=== PATIENT | female | born 1995 | race Caucasian/White ===

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

== ENCOUNTER 2017-01-10 22:04 | Emergency (ER) | payer BC ==
[~2017-01-10] VITALS: Ht 160 cm; Wt 80.0 kg
[2017-01-10 22:47] VITALS: BP 125/75; PULSE 90; RESP 18; TEMP 98; O2SAT 99
== END 2017-01-11 01:00 | disposition left against medical advice (07) ==
LOC: PHED 22:04
DX: M54.9 Dorsalgia, unspecified (principal)
CPT/HCPCS: 99281

== ENCOUNTER → 2017-01-17 | Outpatient (CLI) | payer BC | LOC: CDED 14:45 | PROVIDERS: ATTEND Obstetrics & Gynecology | DX: O24.011 Pre-existing type 1 diabetes mellitus, in pregnancy, first trimester (principal) | CPT/HCPCS: 97802 ==

== ENCOUNTER → 2017-02-02 | Outpatient (CLI) | payer BC | LOC: HPND 10:53 | PROVIDERS: ATTEND Obstetrics & Gynecology | DX: Z36.82 Encounter for antenatal screening for nuchal translucency (principal) | CPT/HCPCS: 76801 ==

== ENCOUNTER 2017-03-02 20:13 | Emergency (ER) | payer BC ==
[~2017-03-02] VITALS: Ht 160 cm; Wt 78.4 kg
[2017-03-02 20:35] VITALS: BP 128/64; PULSE 104; RESP 18; TEMP 97.9; O2SAT 98
[2017-03-02 20:51] VITALS: BP 128/64; PULSE 104; RESP 16; TEMP 97.9; O2SAT 98
[2017-03-02] MEDS ORDERED: HUMALOG SQ (20:51)
[2017-03-02] MEDS ORDERED: PREN1PAK9 (20:51)
[2017-03-02] MEDS ORDERED: SODIUM CHLOR 0.9% 1000 ML INJ 1,000 ML IV SCH (20:58)
[2017-03-02] MEDS ORDERED: SODIUM CHLORIDE 0.9% FLUSH 10 ML FLUSH IV FLUSH PRN (21:00)
[2017-03-02] MEDS ORDERED: SODIUM CHLOR 0.9% 1000 ML INJ 1,000 ML IV ONE (21:00)
[2017-03-02] MEDS ORDERED: ONDANSETRON HCL 4 MG/2 ML VIAL IV PUSH ONE (21:00)
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
[2017-03-02 21:34] LABS: AUTOMATED NEUTROPHIL # 8.5 TH/MM3 (1.8-7.7); BASOPHIL % 0.4 % (0.0-2.0); EOSINOPHIL % 0.4 % (0.0-4.0); HEMATOCRIT 38.2 % (35.0-46.0); HEMOGLOBIN 13.1 GM/DL (11.6-15.3); LYMPH % 19.1 % (9.0-44.0); LYMPHOCYTE # 2.1 TH/MM3 (1.0-4.8); MEAN CELL VOLUME 91.9 FL (80.0-100.0); MEAN CORPUSCULAR HEMOGLOBIN 31.6 PG (27.0-34.0); MEAN CORPUSCULAR HGB CONC 34.4 % (32.0-36.0); MEAN PLATELET VOLUME 8.9 FL (7.0-11.0); MONO % 5.3 % (0.0-8.0); MONOCYTE # 0.6 TH/MM3 (0-0.9); NEUT % 74.8 % (16.0-70.0); PLATELET COUNT 255 TH/MM3 (150-450); RED BLOOD COUNT 4.16 MIL/MM3 (4.00-5.30); RED CELL DISTRIBUTION WIDTH 11.8 % (11.6-17.2); WHITE BLOOD COUNT 11.2 TH/MM3 (4.0-11.0)
[2017-03-02 21:35] LABS: BILIRUBIN, URINE NEG (NEG); BLOOD, URINE NEG (NEG); GLUCOSE,URINE 1000 OR GREATER mg/dL (NEG); KETONE, URINE NEG (NEG); NITRITE,URINE NEG (NEG); URINE LEUKOCYTE ESTERASE NEG (NEG)
[2017-03-02 21:40] LABS: URINE COLOR YELLOW (YELLW/STRAW)
[2017-03-02 21:41] LABS: BACTERIA, URINE FEW /hpf; SQUAMOUS EPITHELIAL CELL URINE > 8 /hpf (0-5); WBC, URINE 0-2 /hpf (0-5)
[2017-03-02 21:52] LABS: CHLORIDE 105 MEQ/L (98-107); SODIUM (NA) 137 MEQ/L (136-145)
[2017-03-02 21:55] LABS: CALCIUM 8.9 MG/DL (8.5-10.1)
[2017-03-02 21:56] LABS: ALBUMIN 3.5 GM/DL (3.4-5.0); BICARBONATE 23.7 MEQ/L (21.0-32.0); BLOOD UREA NITROGEN 5 MG/DL (7-18); GLUCOSE,RANDOM 213 MG/DL (74-106)
[2017-03-02 21:59] LABS: ALT (GPT) 16 U/L (9-42); AST (GOT) 11 U/L (16-38); CREATININE 0.49 MG/DL (0.50-1.00); GLOMERULAR FILTRATION RATE 163 ML/MIN (>89)
[2017-03-02 22:01] LABS: TOTAL BILIRUBIN ADULT 0.3 MG/DL (0.2-1.0); TOTAL PROTEIN 7.4 GM/DL (6.4-8.2)
[2017-03-02 22:02] LABS: ALKALINE PHOSPHATASE 44 U/L (45-117)
[2017-03-02 22:58] VITALS: BP 119/74; PULSE 87; RESP 16; O2SAT 99
== END 2017-03-02 23:15 | disposition home or self-care (01) ==
LOC: PHED 20:13
DX: O24.912 Unspecified diabetes mellitus in pregnancy, second trimester (principal); E10.65 Type 1 diabetes mellitus with hyperglycemia; O21.9 Vomiting of pregnancy, unspecified; Z3A.17 17 weeks gestation of pregnancy; Z79.4 Long term (current) use of insulin; Z79.899 Other long term (current) drug therapy; Z34.92 Encounter for supervision of normal pregnancy, unspecified, second trimester
CPT/HCPCS: 80053; 81001; 84702; 85025; 96361; 96374; 99284; J2405; J7030

== ENCOUNTER → 2017-03-09 | Outpatient (CLI) | payer BC ==
[~2017-03-09] MED LIST changes: +HUMALOG SQ; +PREN1PAK9
== END ==
LOC: HPND 09:47
PROVIDERS: ATTEND Obstetrics & Gynecology
DX: O24.012 Pre-existing type 1 diabetes mellitus, in pregnancy, second trimester (principal); Z79.4 Long term (current) use of insulin
CPT/HCPCS: 76811

== ENCOUNTER 2017-03-25 14:08 | Emergency (ER) | payer BC ==
--- NOTE | 2017-03-25 16:17 | PD ---
HPI Chief Complaint back pain, elevated glucose Date Seen: Mar 25, 2017 Time Seen: 16:12 Travel History International Travel<30 Days: No Contact w/Intl Traveler<30Days: No Known Affected Area: No History of Present Illness HPI 21y/o G1 @ 20.5wks. PNC at [facility]. Presents for back pain, bilateral, aching. No dysuria/fevers/chills. +FM, no VB/LOF/ctx. is c/b Type 1 DM ( insulin pump) with multiple episodes of DKA throughout lifetime. Pt states sugars have been in the 200-300 range. Is followed by MFM/endocrinology. States her sugars are the best they have every been in her life at these levels. Weeks Gestation: 20 Para: 0 : 1 History Past Medical History Narrative Medical type 1 DM Obstetric History Obstetric History 1. current Past Surgical History Narrative Surgical cholecystectomy thoracentesis Family History Family History: Negative Social History Alcohol Use: Yes Tobacco Use: Yes Substance Abuse: Yes Allergies-Medications (Allergen,Severity, Reaction): Coded Allergies: No Known Allergies (Verified , 09/27/16) Home Meds Reported Medications Mv & Min W/Fe Prot Ross ( + Complete Multi 18-0.8 & 290 mg) 18 Mg Iron-800 Mcg-290 Mg-225 Mg Vega 03/02/17 Insulin Lispro (Human) Inj (Humalog Inj) 1,000 Unit/10 Ml Vial, 1-9 UNITS SQ ACHS for Blood Sugar Management, #1 VIAL 0 Refills Max dose at bedtime:( )units; sugars< 70,(0)units; sugars 150-199,(1)unit; sugars 200-249,(3)units; sugars 250-299,(5)units; sugars 300-349,(7)units; sugars more than 349,(9)units. 03/02/17 Insulin Human Regular Inj (Novolin R Inj) 1,000 Unit/10 Ml Vial, 0 SQ DIRECTED for Blood Sugar Management, #10 ML 0 Refills Sliding Scale As Directed. 06/27/16 Review of Systems Except as stated in HPI: all other systems reviewed are Neg Physical Exam Narrative General: well developed, well nourished, no acute distress HEENT: normocephalic atraumatic, extraocular movements intact, neck supple Abdomen: soft, nontender, nondistended Back: no CVA tenderness Extremities: full range of motion Skin: normal coloration, no rashes, no suspicious skin lesions noted Neurologic: cranial nerves 2-12 grossly intact, normal muscle tone, normal gait Psychiatric: normal mood and affect, appropriate FHTs: 160s Edie: quiet FSBS: 244 Data Data Vital Signs Reviewed: Yes Orders Orders Vital Signs (Adult) .ON ADMISSION (03/25/17 16:11) ^ Labor Status (03/25/17 16:11) Heart (03/25/17 16:11) Urinalysis - C+S If Indicated (03/25/17 16:11) Bedside Glucose MALCOM.CSUGAR (03/25/17 16:11) MDM Plan 21y/o G1 @ 20.5wks with back pain and poorly controlled DM. -- UA neg for infection -- back pain likely MSK -- pt sees chiropractor BIW -- FSBS 244; pt to ED for further evaluation/management Diagnosis Diagnosis: Primary Impression: 20 weeks gestation of Additional Impressions: Back pain Diabetes mellitus affecting in second trimester Disposition: 01 DISCHARGE HOME Condition: Stable Patient Instructions: General Instructions Departure Forms: Tests/Procedures Rashaad Stevens MD Mar 25, 2017 16:17
== END 2017-03-25 16:20 | disposition home or self-care (01) ==
LOC: HOBED 14:08
DX: O26.892 Other specified pregnancy related conditions, second trimester (principal); M54.9 Dorsalgia, unspecified; O24.012 Pre-existing type 1 diabetes mellitus, in pregnancy, second trimester; E10.9 Type 1 diabetes mellitus without complications; Z3A.20 20 weeks gestation of pregnancy; Z79.4 Long term (current) use of insulin; Z90.49 Acquired absence of other specified parts of digestive tract; Z72.0 Tobacco use
CPT/HCPCS: 99283

== ENCOUNTER 2017-03-25 16:29 | Emergency (ER) | payer BC ==
[2017-03-25 16:31] VITALS: BP 121/68; PULSE 90; RESP 14; TEMP 98.2; O2SAT 100
== END 2017-03-25 16:47 | disposition left against medical advice (07) ==
LOC: NED 16:29
DX: E11.9 Type 2 diabetes mellitus without complications (principal)
CPT/HCPCS: 99281

== ENCOUNTER → 2017-04-06 | Outpatient (CLI) | payer BC ==
[~2017-04-06] MED LIST changes: +AUGM875T3 PO; +BUTA1CAP PO
== END ==
LOC: HPND 09:52
PROVIDERS: ATTEND Obstetrics & Gynecology
DX: O24.012 Pre-existing type 1 diabetes mellitus, in pregnancy, second trimester (principal)
CPT/HCPCS: 76816; 76825; 76827; 93325

== ENCOUNTER 2017-04-11 08:06 | Emergency (ER) | payer BC ==
[~2017-04-11] VITALS: Ht 160 cm; Wt 80.0 kg
[~2017-04-11 08:06] MED LIST changes: -AUGM875T3 PO; -BUTA1CAP PO
[2017-04-11 08:08] VITALS: BP 135/66; PULSE 103; RESP 17; TEMP 98; O2SAT 97
[2017-04-11 08:37] VITALS: BP 118/70; PULSE 95; RESP 18; O2SAT 99
[2017-04-11] MEDS ORDERED: KETOROLAC TROMETHAMINE 60 MG/2 ML (IM) VIAL IM ONE (08:45)
[2017-04-11] MEDS ORDERED: PROMETHAZINE INJ 25 MG/ML VIAL IM ONE (08:45)
[2017-04-11] MEDS ORDERED: AUGM875T3 PO (08:45)
[2017-04-11] MEDS ORDERED: BUTA1CAP PO (08:45)
--- NOTE | 2017-04-11 08:46 | PD ---
HPI Chief Complaint: Headache Time Seen by Provider: 08:34 Travel History International Travel<30 days: No Contact w/Intl Traveler<30days: No Traveled to known affect area: No History of Present Illness HPI Patient comes in complaining of a frontal headache, rates it at about a 7 out of 10, onset was about a day ago, and it has not been improving... No alleviating or aggravating factors. Patient denies any associated factors such as fever neck pain, nausea, vomiting, diarrhea, chest pain, abdominal pain, back pain. No allergies to any medications Significant past medical history for type 1 diabetes Only significant surgery is a cholecystectomy . PFSH Past Medical History Autoimmune Disease: No Anxiety: No Depression: No Cardiovascular Problems: No Diabetes: Yes Patient Takes Glucophage: No Diminished Hearing: No Gastrointestinal Disorders: No Genitourinary: No Heparin Induced Thrombocytopen: No Immune Disorder: No Musculoskeletal: No Neurologic: No Psychiatric: No Respiratory: No Immunizations Current: Yes Sickle Cell Disease: No Tetanus Vaccination: > 5 Years Influenza Vaccination: No PNEUMOCCOCAL Vaccine (Year): 2 ?: LMP: 10/22/16 Past Surgical History Body Medical Devices: VIBE IMPLANTED INSULIN PUMP (2016) Cholecystectomy: Yes Insulin Pump: Yes (not currently on) Other Surgery: No Social History Alcohol Use: No Tobacco Use: No Substance Use: No Allergies-Medications (Allergen,Severity, Reaction): Coded Allergies: No Known Allergies (Verified Adverse Reaction, Unknown, 04/11/17) Reported Meds & Prescriptions Reported Meds & Active Scripts Active Reported + Complete Multi 18-0.8 & 290 mg ( Mv & Min W/Fe Prot Ross) 18 Mg Iron-800 Mcg-290 Mg-225 Mg Vega Humalog Inj (Insulin Human Lispro) 1,000 Unit/10 Ml Vial 1-9 Units SQ ACHS Max dose at bedtime:( )units; sugars< 70,(0)units; sugars 150-199,(1)unit; sugars 200-249,(3)units; sugars 250-299,(5)units; sugars 300-349,(7)units; sugars more than 349,(9)units. Novolin R Inj (Insulin Human Regular) 1,000 Unit/10 Ml Vial 0 SQ DIRECTED Sliding Scale As Directed. Review of Systems Except as stated in HPI: all other systems reviewed are Neg General / Constitutional: No: Fever Eyes: No: Visual changes HENT: Positive: Headaches Cardiovascular: No: Chest Pain or Discomfort Respiratory: No: Shortness of Breath Gastrointestinal: No: Abdominal Pain Genitourinary: No: Dysuria Musculoskeletal: No: Pain Skin: No Rash Neurologic: No: Weakness Psychiatric: No: Depression Endocrine: No: Polydipsia Hematologic/Lymphatic: No: Easy Bruising Physical Exam Narrative GENERAL: SKIN: Warm and dry. HEAD: Atraumatic. Normocephalic. EYES: Pupils equal and round. No scleral icterus. No injection or drainage. ENT: No nasal bleeding or discharge. Mucous membranes pink and moist. NECK: Trachea midline. No JVD. CARDIOVASCULAR: Regular rate and rhythm. RESPIRATORY: No accessory muscle use. Clear to auscultation. Breath sounds equal bilaterally. GASTROINTESTINAL: Abdomen soft, non-tender, nondistended. MUSCULOSKELETAL: Extremities without clubbing, cyanosis, or edema. No obvious deformities. NEUROLOGICAL: Awake and alert. No obvious cranial nerve deficits. Motor grossly within normal limits. Five out of 5 muscle strength in the arms and legs. Normal speech. PSYCHIATRIC: Appropriate mood and affect; insight and judgment normal. Data Data Last Documented VS Vital Signs Date Time Temp Pulse Resp B/P (MAP) Pulse Ox O2 Delivery O2 Flow Rate FiO2 04/11/17 08:37 95 18 118/70 (86) 99 Room Air 04/11/17 08:08 98.0 Orders Orders Ketorolac Inj (Toradol Inj) (04/11/17 08:45) Promethazine Inj (Phenergan Inj) (04/11/17 08:45) MDM Medical Decision Making Medical Screen Exam Complete: Yes Emergency Medical Condition: Yes Medical Record Reviewed: Yes Differential Diagnosis Tension headache versus sinus headache versus migraine Narrative Course Clinically patient shows evidence of a sinusitis Diagnosis Primary Impression: sinusitis Patient Instructions: General Instructions Scripts Prmsinvxqu-Fzbpdzrjvxyvt-Ummwdzkk (Fioricet) 50-300-40 Mg Cap 1-2 CAP PO Q6H Y for HEADACHE, #14 CAP 0 Refills Prov: Paco Sparrow MD 04/11/17 Amoxicillin-Clavulanate (Augmentin) 875-125 Mg Tab 1 TAB PO BID for Infection for 7 Days, #14 TAB 0 Refills Prov: Paco Sparrow MD 04/11/17 Disposition: 01 DISCHARGE HOME Condition: Stable Paco Sparrow MD Apr 11, 2017 08:46
[2017-04-11] MEDS ORDERED: AMOXICILLIN/CLAVULANATE K 875 MG TAB PO ONE (10:45)
== END 2017-04-11 12:01 | disposition home or self-care (01) ==
LOC: NEPC 08:06
DX: J32.9 Chronic sinusitis, unspecified (principal); E10.9 Type 1 diabetes mellitus without complications; Z79.4 Long term (current) use of insulin
CPT/HCPCS: 96372; 99283; J1885; J2550

== ENCOUNTER → 2017-05-04 | Outpatient (CLI) | payer BC ==
[~2017-05-04] MED LIST changes: +AUGM875T3 PO; +BUTA1CAP PO
== END ==
LOC: HPND 10:09
PROVIDERS: ATTEND Obstetrics & Gynecology
DX: O24.012 Pre-existing type 1 diabetes mellitus, in pregnancy, second trimester (principal)
CPT/HCPCS: 76816

== ENCOUNTER → 2017-06-01 | Outpatient (CLI) | payer BC | LOC: HPND 09:18 | PROVIDERS: ATTEND Obstetrics & Gynecology | DX: O24.013 Pre-existing type 1 diabetes mellitus, in pregnancy, third trimester (principal) | CPT/HCPCS: 76816 ==

== ENCOUNTER → 2017-06-12 | Emergency (ER) | payer BC ==
[~2017-06-12] MED LIST changes: +LACTATED RINGER'S 1000 ML INJ 500 ML IV ONE; +NIFEdipine 10 MG CAP ONE; +NIFEdipine 20 MG CAP PO ONE
--- NOTE | 2017-06-12 17:03 | PD ---
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 She denies bleeding, leakage of fluid and is uncertain whether this is contraction activity. She reports good movement. Last Menstrual Period: Jun 12, 2017 History Past Medical History Narrative Medical Type I diabetic with an insulin pump, blood sugar at 1:30 was 154 Obstetric History Obstetric History Dr. Wheeler patient Primigravida Type I diabetic Past Surgical History Narrative Surgical None Surgical History: No Previous Surgery Family History Family History: Negative Social History Alcohol Use: No Tobacco Use: No Substance Abuse: No Allergies-Medications (Allergen,Severity, Reaction): Coded Allergies: No Known Allergies (Verified Allergy, Unknown, 06/12/17) Home Meds Active Scripts Hfparduqgq-Uclkvbpxcmwug-Typxjvec (Fioricet) 50-300-40 Mg Cap, 1-2 CAP PO Q6H Y for HEADACHE, #14 CAP 0 Refills Prov:Paco Sparrow MD 04/11/17 Amoxicillin-Clavulanate (Augmentin) 875-125 Mg Tab, 1 TAB PO BID for Infection for 7 Days, #14 TAB 0 Refills Prov:Paco Sparrow MD 04/11/17 Reported Medications Mv & Min W/Fe Prot Ross ( + Complete Multi 18-0.8 & 290 mg) 18 Mg Iron-800 Mcg-290 Mg-225 Mg Vega 03/02/17 Insulin Lispro (Human) Inj (Humalog Inj) 1,000 Unit/10 Ml Vial, 1-9 UNITS SQ ACHS for Blood Sugar Management, #1 VIAL 0 Refills Max dose at bedtime:( )units; sugars< 70,(0)units; sugars 150-199,(1)unit; sugars 200-249,(3)units; sugars 250-299,(5)units; sugars 300-349,(7)units; sugars more than 349,(9)units. 03/02/17 Insulin Human Regular Inj (Novolin R Inj) 1,000 Unit/10 Ml Vial, 0 SQ DIRECTED for Blood Sugar Management, #10 ML 0 Refills Sliding Scale As Directed. 06/27/16 Review of Systems Except as stated in HPI: all other systems reviewed are Neg Physical Exam Narrative GENERAL: Well-nourished, well-developed patient. SKIN: Warm and dry. HEAD: Normocephalic and atraumatic. EYES: No scleral icterus. No injection or drainage. ENT: No nasal drainage noted. Mucous membranes pink. Airway patent. NECK: Supple, trachea midline. No JVD. CARDIOVASCULAR: Regular rate and rhythm without murmurs, gallops, or rubs. RESPIRATORY: Breath sounds equal bilaterally. No accessory muscle use. ABDOMEN/GI: Abdomen soft, non-tender, bowel sounds present, no rebound, no guarding Gravid to [-] weeks size Fundal Height: [-] GENITOURINARY: External Genitalia: intact and normal in appearance BUS glands: [-] Cervix: [-] Dilatation: [Fingertip-] Effacement: [50-] Station: [-2-] Presentation: [-] Membranes: [intact] Uterine Contractions: [Mild Q3-] FHT's: Category: [-] Baseline: [-] Reactive: [Yes-] Variability: [-] Decels: [-] EXTREMITIES: No cyanosis or edema. BACK: Nontender without obvious deformity. No CVA tenderness. NEUROLOGICAL: Awake and alert. Motor and sensory grossly within normal limits. Five out of 5 muscle strength in all muscle groups. Normal speech. MDM Medical Record Reviewed: Yes Narrative Course / MDM Assessment: 32+ week primigravida with contractions, type 1 diabetes Plan: IV hydration, fibronectin, urinalysis Addendum: Urinalysis was unremarkable, fibronectin negative The patient reports diminished pain. Cervix is unchanged Plan: Discharge home with labor precautions. Diagnosis Diagnosis: Primary Impression: 32 weeks gestation of Additional Impression: Irregular uterine contractions Disposition: 01 DISCHARGE HOME Condition: Good Nick Valentin MD Jun 12, 2017 17:03
[2017-06-12 17:13] LABS: BILIRUBIN, URINE NEG (NEG); BLOOD, URINE NEG (NEG); GLUCOSE,URINE 1000 mg/dL (NEG); KETONE, URINE 150 mg/dL (NEG); MUCUS URINE FEW /lpf (OCC); NITRITE,URINE NEG (NEG); SQUAMOUS EPITHELIAL CELL URINE 1 /hpf (0-5); URINE COLOR YELLOW (YELLW/STRAW); URINE LEUKOCYTE ESTERASE NEG (NEG)
== END | disposition home or self-care (01) ==
LOC: HOBED 16:21
DX: O62.2 Other uterine inertia (principal); Z3A.32 32 weeks gestation of pregnancy
CPT/HCPCS: 59025; 81001; 82731; 96360; 96361; 99284; J7120

== ENCOUNTER 2017-06-13 11:23 | Emergency (ER) | payer BC ==
[~2017-06-13 11:23] MED LIST changes: -LACTATED RINGER'S 1000 ML INJ 500 ML IV ONE; -NIFEdipine 10 MG CAP ONE; -NIFEdipine 20 MG CAP PO ONE
[2017-06-13 12:25] VITALS: PULSE 104
[2017-06-13 12:27] VITALS: BP 114/68; PULSE 97
--- NOTE | 2017-06-13 12:50 | PD ---
HPI Chief Complaint CTX, abdominal pain Date Seen: Jun 13, 2017 Time Seen: 12:29 Travel History International Travel<30 Days: No Contact w/Intl Traveler<30Days: No History of Present Illness HPI 24 year old primigravida 32 and 3/7 weeks gestation who comes today noting contractions every 2 min since this morning. She denies vaginal bleeding or leakage of fluid. She feels baby moving regularly. She denies GOULD/N/V/D/fever/ sick contacts/SOB/calf pain/dizziness/seeing spots. OB care is with Dr. Wheeler. DM 1 on insulin pump since prior to , blood sugars well controlled per patient. On aspirin 81mg daily. No Hx HTN She of note was seen in ED yesterday with CTX q 2min, was given 1L fluid bolus and Procardia 20mg PO x 1. History Past Medical History Narrative Medical type 1 DM Obstetric History Obstetric History G1 current Past Surgical History Surgical History: No Previous Surgery Family History Family History: Negative Social History Alcohol Use: No Tobacco Use: No Substance Abuse: No Allergies-Medications (Allergen,Severity, Reaction): Coded Allergies: No Known Allergies (Verified Allergy, Unknown, 06/12/17) Home Meds Active Scripts Dhqdvqzvqc-Mofnkgmrtcxux-Dhcchvxv (Fioricet) 50-300-40 Mg Cap, 1-2 CAP PO Q6H Y for HEADACHE, #14 CAP 0 Refills Prov:Paco Sparrow MD 04/11/17 Amoxicillin-Clavulanate (Augmentin) 875-125 Mg Tab, 1 TAB PO BID for Infection for 7 Days, #14 TAB 0 Refills Prov:Paco Sparrow MD 04/11/17 Reported Medications Mv & Min W/Fe Prot Ross ( + Complete Multi 18-0.8 & 290 mg) 18 Mg Iron-800 Mcg-290 Mg-225 Mg Vega 03/02/17 Insulin Lispro (Human) Inj (Humalog Inj) 1,000 Unit/10 Ml Vial, 1-9 UNITS SQ ACHS for Blood Sugar Management, #1 VIAL 0 Refills Max dose at bedtime:( )units; sugars< 70,(0)units; sugars 150-199,(1)unit; sugars 200-249,(3)units; sugars 250-299,(5)units; sugars 300-349,(7)units; sugars more than 349,(9)units. 03/02/17 Insulin Human Regular Inj (Novolin R Inj) 1,000 Unit/10 Ml Vial, 0 SQ DIRECTED for Blood Sugar Management, #10 ML 0 Refills Sliding Scale As Directed. 06/27/16 Physical Exam Narrative GENERAL: Well-nourished, well-developed patient. SKIN: Warm and dry. HEAD: Normocephalic and atraumatic. EYES: No scleral icterus. No injection or drainage. ENT: No nasal drainage noted. Mucous membranes pink. Airway patent. NECK: Supple, trachea midline. No JVD. CARDIOVASCULAR: Regular rate and rhythm without murmurs, gallops, or rubs. RESPIRATORY: Breath sounds equal bilaterally. No accessory muscle use. ABDOMEN/GI: Abdomen soft, non-tender, bowel sounds present, no rebound, no guarding. Gravid GENITOURINARY: External Genitalia: intact and normal in appearance. Cervix: [-] Dilatation: [-] Effacement: [-] Station: [-] Presentation: [-] Membranes: intact Uterine Contractions: absent FHT's: Category: [1] Baseline: [145] Reactive: [y] Variability: [mod] Decels: [no] EXTREMITIES: No cyanosis or edema. BACK: Nontender without obvious deformity. No CVA tenderness. NEUROLOGICAL: Awake and alert. Motor and sensory grossly within normal limits. Five out of 5 muscle strength in all muscle groups. Normal speech. Data Data Vital Signs Reviewed: Yes Orders Orders Vital Signs (Adult) .ON ADMISSION (06/13/17 12:27) ^ Labor Status (06/13/17 12:27) ^ Non Stress Test (06/13/17 12:27) ^ Hydration (06/13/17 12:27) MDM Medical Record Reviewed: Yes Narrative Course / MDM 32 week primigravida with abdominal pain Cervix closed, thick, high No CTX on monitor Plan: PO hydration, fentanyl 50mcg IM x 1 if patient agreeable, close f/u with Dr. Liam DAVIESW Dr. Noland Diagnosis Diagnosis: Primary Impression: 32 weeks gestation of Additional Impressions: Insulin dependent diabetes mellitus Irregular uterine contractions Disposition: 01 DISCHARGE HOME Condition: Stable Patient Instructions: Early Labor Signs (ED), Movement (ED), Gestational Diabetes Diet (GEN) Rani Geiger MD R2 Jun 13, 2017 12:50
== END 2017-06-13 13:29 | disposition home or self-care (01) ==
LOC: HOBED 11:23
DX: O24.013 Pre-existing type 1 diabetes mellitus, in pregnancy, third trimester (principal); E10.9 Type 1 diabetes mellitus without complications; O62.9 Abnormality of forces of labor, unspecified; Z3A.32 32 weeks gestation of pregnancy; Z79.4 Long term (current) use of insulin; Z96.41 Presence of insulin pump (external) (internal)
CPT/HCPCS: 59025

== ENCOUNTER 2017-07-11 15:28 | Emergency (ER) | payer BC ==
--- NOTE | 2017-07-11 16:13 | PD ---
HPI Chief Complaint Contractions Date Seen: July 11, 2017 Time Seen: 16:09 Travel History International Travel<30 Days: No Contact w/Intl Traveler<30Days: No Known Affected Area: No History of Present Illness HPI 22-year-old who is at 36 weeks 1 day comes in complaining of contractions. Contractions began at 1:00 this morning and have gradually improved over the past few hours and now they are very mild and almost resolved. Patient has known type 1 diabetes and is on an insulin pump with plan for induction at 37 weeks. Patient denies any additional complications during her and has been followed with rate of growth ultrasounds which showed adequate growth. Patient denies vaginal bleeding discharge or rupture membranes. Patient was checked last week and her cervix was 2 cm. Weeks Gestation: 36 Para: 0 : 1 History Past Medical History Narrative Medical Type 1 diabetes Past Surgical History Narrative Surgical Laparoscopic cholecystectomy Family History Family History: Negative Social History Alcohol Use: No Tobacco Use: No Substance Abuse: No Allergies-Medications (Allergen,Severity, Reaction): Coded Allergies: No Known Allergies (Verified Allergy, Unknown, 06/12/17) Home Meds Active Scripts Hrfxcikhbq-Vzebwapfcosij-Caymrjlh (Fioricet) 50-300-40 Mg Cap, 1-2 CAP PO Q6H Y for HEADACHE, #14 CAP 0 Refills Prov:Paco Sparrow MD 04/11/17 Amoxicillin-Clavulanate (Augmentin) 875-125 Mg Tab, 1 TAB PO BID for Infection for 7 Days, #14 TAB 0 Refills Prov:Paco Sparrow MD 04/11/17 Reported Medications Mv & Min W/Fe Prot Ross ( + Complete Multi 18-0.8 & 290 mg) 18 Mg Iron-800 Mcg-290 Mg-225 Mg Vega 03/02/17 Insulin Lispro (Human) Inj (Humalog Inj) 1,000 Unit/10 Ml Vial, 1-9 UNITS SQ ACHS for Blood Sugar Management, #1 VIAL 0 Refills Max dose at bedtime:( )units; sugars< 70,(0)units; sugars 150-199,(1)unit; sugars 200-249,(3)units; sugars 250-299,(5)units; sugars 300-349,(7)units; sugars more than 349,(9)units. 03/02/17 Insulin Human Regular Inj (Novolin R Inj) 1,000 Unit/10 Ml Vial, 0 SQ DIRECTED for Blood Sugar Management, #10 ML 0 Refills Sliding Scale As Directed. 06/27/16 Review of Systems Except as stated in HPI: all other systems reviewed are Neg Physical Exam Narrative GENERAL: Well-nourished, well-developed patient. SKIN: Warm and dry. HEAD: Normocephalic and atraumatic. EYES: No scleral icterus. No injection or drainage. ENT: No nasal drainage noted. Mucous membranes pink. Airway patent. NECK: Supple, trachea midline. No JVD. CARDIOVASCULAR: Regular rate and rhythm without murmurs, gallops, or rubs. RESPIRATORY: Breath sounds equal bilaterally. No accessory muscle use. ABDOMEN/GI: Abdomen soft, non-tender, bowel sounds present, no rebound, no guarding Gravid to [-37] weeks size Fundal Height: [-] GENITOURINARY: External Genitalia: intact and normal in appearance BUS glands: [-Normal] Cervix: [-Posterior] Dilatation: [-2] Effacement: [-Thick] Station: [High] Presentation: [-] Membranes: [intact or ruptured] Uterine Contractions: [-] Occasional FHT's: Category: [-1] Baseline: [-140] Reactive: [-Moderate] Variability: [Moderate-] Decels: [Absent-] EXTREMITIES: No cyanosis or edema. BACK: Nontender without obvious deformity. No CVA tenderness. NEUROLOGICAL: Awake and alert. Motor and sensory grossly within normal limits. Five out of 5 muscle strength in all muscle groups. Normal speech. Data Data Vital Signs Reviewed: Yes [facility] Medical Record Reviewed: Yes Plan 22-year-old who is at 36 weeks 1 day with false labor Type 1 diabetes scheduled for induction at 37 weeks gestation Follow up with OB provider as scheduled Diagnosis Diagnosis: Primary Impression: 36 weeks gestation of Additional Impressions: False labor before 37 completed weeks of gestation during in third trimester, antepartum Type 1 diabetes mellitus affecting in third trimester, antepartum Disposition: 01 DISCHARGE HOME Maria Ines Nelson MD July 11, 2017 16:13
== END 2017-07-11 16:20 | disposition home or self-care (01) ==
LOC: HOBED 15:28
DX: O47.03 False labor before 37 completed weeks of gestation, third trimester (principal); O24.911 Unspecified diabetes mellitus in pregnancy, first trimester; Z3A.36 36 weeks gestation of pregnancy; Z79.4 Long term (current) use of insulin; Z96.41 Presence of insulin pump (external) (internal)
CPT/HCPCS: 59025

== ENCOUNTER 2017-07-18 19:50 | Inpatient (IN) | payer BC ==
[~2017-07-18] VITALS: Ht 160 cm; Wt 83.9 kg
[2017-07-18] MEDS ORDERED: SODIUM CHLORIDE 0.9% FLUSH 10 ML FLUSH IV FLUSH PRN (21:30)
[2017-07-18] MEDS ORDERED: NS 1000 ML OTHER PRN (21:30)
[2017-07-18 21:50] VITALS: BP 136/89; PULSE 75
[2017-07-18 21:56] LABS: AUTOMATED NEUTROPHIL # 7.4 TH/MM3 (1.8-7.7); BASOPHIL # 0.1 TH/MM3 (0-0.2); BASOPHIL % 0.5 % (0.0-2.0); EOSINOPHIL % 0.2 % (0.0-4.0); HEMATOCRIT 36.3 % (35.0-46.0); HEMOGLOBIN 12.3 GM/DL (11.6-15.3); LYMPH % 20.5 % (9.0-44.0); LYMPHOCYTE # 2.1 TH/MM3 (1.0-4.8); MEAN CELL VOLUME 88.9 FL (80.0-100.0); MEAN CORPUSCULAR HEMOGLOBIN 30.1 PG (27.0-34.0); MEAN CORPUSCULAR HGB CONC 33.9 % (32.0-36.0); MEAN PLATELET VOLUME 11.8 FL (7.0-11.0); MONO % 8.6 % (0.0-8.0); MONOCYTE # 0.9 TH/MM3 (0-0.9); NEUT % 70.2 % (16.0-70.0); PLATELET COUNT 163 TH/MM3 (150-450); RED BLOOD COUNT 4.08 MIL/MM3 (4.00-5.30); RED CELL DISTRIBUTION WIDTH 13.2 % (11.6-17.2); WHITE BLOOD COUNT 10.5 TH/MM3 (4.0-11.0)
[2017-07-18] MEDS ORDERED: DINOPROSTONE 10 MG INSERT-LEAVE FOR 12 HOURS VAGINAL ONE (22:00)
[2017-07-18 22:03] LABS: BACTERIA, URINE RARE /hpf; BILIRUBIN, URINE NEG (NEG); BLOOD, URINE NEG (NEG); GLUCOSE,URINE 70 mg/dL (NEG); KETONE, URINE TRACE mg/dL (NEG); MUCUS URINE MANY /lpf (OCC); NITRITE,URINE NEG (NEG); PH, URINE 6.5 (5.0-8.5); SQUAMOUS EPITHELIAL CELL URINE 5 /hpf (0-5); URINE COLOR YELLOW (YELLW/STRAW); URINE LEUKOCYTE ESTERASE MOD (NEG)
[2017-07-18] MEDS ORDERED: ASPI-516 CHEW (22:14)
[2017-07-18 22:59] LABS: ALBUMIN 3.4 GM/DL (3.4-5.0); BICARBONATE 22.9 MEQ/L (21.0-32.0); BLOOD UREA NITROGEN 9 MG/DL (7-18); CALCIUM 9.2 MG/DL (8.5-10.1); CHLORIDE 106 MEQ/L (98-107); CREATININE 0.78 MG/DL (0.50-1.00); GLOMERULAR FILTRATION RATE 94 ML/MIN (>89); GLUCOSE,RANDOM 61 MG/DL (74-106); SODIUM (NA) 139 MEQ/L (136-145)
[2017-07-18 23:00] LABS: AST (GOT) 16 U/L (16-38)
[2017-07-18 23:03] LABS: ALKALINE PHOSPHATASE 171 U/L (45-117); ALT (GPT) 15 U/L (9-42); TOTAL BILIRUBIN ADULT 0.7 MG/DL (0.2-1.0); TOTAL PROTEIN 7.8 GM/DL (6.4-8.2)
[2017-07-18 23:30] VITALS: RESP 18
[2017-07-19] VITALS (63 sets, daily range): BP systolic 113–161; BP diastolic 55–98; PULSE 0–116; RESP 16–21; TEMP 97.7–98.4
[2017-07-19] MEDS ORDERED: CITRIC ACID-SODIUM CITRATE LIQ 30 ML UDC PO SCH ×2 (02:15→13:30)
[2017-07-19] MEDS ORDERED: LIDOCAINE HCL 1% 50 ML VIAL INFIL PRN (02:15)
[2017-07-19] MEDS ORDERED: ACETAMINOPHEN 325 MG TAB PO PRN ×2 (02:15→13:15)
[2017-07-19] MEDS ORDERED: LIDOCAINE HCL 1% 50 ML VIAL I-DERMAL PRN (02:15)
[2017-07-19] MEDS ORDERED: NS 500 ML BOLUS IV PRN (02:15)
[2017-07-19] MEDS ORDERED: ONDANSETRON HCL 4 MG/2 ML VIAL IV PUSH PRN ×2 (02:15→13:15)
[2017-07-19] MEDS ORDERED: OXYTOCIN 30 UNITS 500ML PREMIX IV ONE (02:15)
[2017-07-19] MEDS ORDERED: LACTATED RINGER'S 1000 ML IV SCH (02:15)
[2017-07-19] MEDS ORDERED: ZOLPIDEM TARTRATE 5 MG TAB PO PRN (02:15)
[2017-07-19] MEDS ORDERED: LACTATED RINGER'S 1000 ML BOLUS IV PRN (02:15)
[2017-07-19] MEDS ORDERED: MINERAL OIL 10 ML VIAL TOPICAL PRN (02:15)
[2017-07-19] MEDS ORDERED: NS 1000 ML IV PRN (02:15)
[2017-07-19] MEDS ORDERED: OXYTOCIN 30 UNITS/NS 500ML PREMIX IV PRN (06:45)
[2017-07-19] MEDS ORDERED: ePHEDrine/NS 25 MG/5 ML SYRINGE ONE (07:45)
[2017-07-19] MEDS ORDERED: fentaNYL 2MCG-BUPIV 0.125% INJ 100 ML ONE (07:45)
--- NOTE | 2017-07-19 07:59 | PD.LABORPN ---
Subjective Subjective feeling uncomfortable, wants epidural Objective Vital Signs Vital Signs Date Time Temp Pulse Resp B/P (MAP) Pulse Ox O2 Delivery O2 Flow Rate FiO2 07/19/17 07:47 17 07/19/17 07:35 83 145/95 (112) 07/19/17 07:34 85 07/19/17 05:51 98.4 18 07/19/17 05:39 80 07/19/17 05:39 134/89 (104) 07/19/17 01:52 97.7 07/19/17 01:45 75 153/95 (114) Objective Pelvic Exam: Cervix: [posterior] Dilatation: [2-3] Effacement: [50] Station: [-2] Presentation: [vtx] Membranes: AROM'd clear this check Uterine Contractions: [q2-3 min] FHT's: Category: [I] Baseline: [130s] Reactive: [y] Variability: [y] Decels: [n] Weeks Gestation: 37 Medical induction of labor?: Yes Medical induction start date: July 18, 2017 Artificial rupture of membrane: Yes Artificial ROM date: July 19, 2017 Assessment/Plan Problem List: (1) 37 weeks gestation of ICD Codes: Z3A.37 - 37 weeks gestation of Status: Acute (2) Insulin dependent diabetes mellitus ICD Codes: E11.9 - Insulin dependent diabetes mellitus; Z79.4 - care home ( current) use of insulin Status: Chronic (3) Gestational hypertension ICD Codes: O13.9 - Gestational [-induced] hypertension without significant proteinuria, unspecified trimester Status: Acute Qualifiers: Qualified Codes: O13.3 - Gestational [-induced] hypertension without significant proteinuria, third trimester Assessment and Plan 22 yo G1 with nelson IUP at 37w2d, pt of Dr. Wheeler's, admit for labor induction at term due to poorly controlled insulin dependent diabetes 1) IOL: s/p cervidil overnight, AROM'd clear fluid this AM, pitocin ordered, continue active mgmt 2) GBS +: for PCN ppx 3) IDDM: accuchecks and SS ordered 4) gestational HTN: mild range BPs, asymptomatic 5) status: Cat I tracing currently Karena Knapp MD July 19, 2017 07:59
[2017-07-19] MEDS ORDERED: OXYTOCIN 30 UNITS-500ML PREMIX 500 ML IV PRN ×2 (08:00→18:15)
[2017-07-19] MEDS ORDERED: LIDOCAINE 2%/EPINEPHrine PF 1:200,000 20ML SDV ONE (08:01)
[2017-07-19] MEDS ORDERED: PENICILLIN G POT 2,500,000 UNITS/NS 100 ML IV SCH ×2 (09:00)
[2017-07-19] MEDS ORDERED: PENICILLIN G POT 5,000,000 UNITS/NS 100 ML (Mini-Bag Plus) IV ONE ×2 (09:00)
--- NOTE | 2017-07-19 09:02 | HHI.HP ---
HPI Chief Complaint iol type I DM Travel History International Travel<30 Days: No Contact w/Intl Traveler<30Days: No Known Affected Area: No History of Present Illness HPI 22 yo G1 with Type I DM, being admitted for iol. Pt has insulin pump and has been co-managed with mushtaq and her aeronautical engineering professor. She was dx at age 12, started on pump at age 15. HEr initial HgA1c was 8.8 at initiation care, most recent A1C was 6.7. Her current pump basal rate is 1.2, she is doing a 1:6 carb ratio as she was having low values. Per her aeronautical engineering professor, she is to stop pump during active labor, and then resume pump at half the current rate. She is measuring large for gestational age; u/s at 34w4d notes fetus to be 6lb 5 oz. Her was c/b syncopal episode. She saw [facility] executive in June and had an echo w normal EF 58%, mild MR/TR/PI. She has had BP above her baseline; pih labs wnl at 35 weeks. Weeks Gestation: 37 : 1 History Past Medical History Narrative Medical Type I IDM, dx at age 12 Depression - seeing counselor, no meds REflux Migraines Obstetric History Obstetric History G1 Past Surgical History Narrative Surgical 06/2016 cholecystectomy, in hospital for 2 wk for complications Family History Family History: Negative Social History Alcohol Use: No Tobacco Use: No Substance Abuse: No Allergies-Medications (Allergen,Severity, Reaction): Coded Allergies: No Known Allergies (Verified Allergy, Unknown, 07/18/17) Home Meds Reported Medications Aspirin (Aspirin) 81 Mg Chew, 81 MG CHEW DAILY, TAB 0 Refills 07/18/17 Mv & Min W/Fe Prot Ross ( + Complete Multi 18-0.8 & 290 mg) 18 Mg Iron-800 Mcg-290 Mg-225 Mg Vega 03/02/17 Insulin Lispro (Human) Inj (Humalog Inj) 1,000 Unit/10 Ml Vial, 1-9 UNITS SQ ACHS for Blood Sugar Management, #1 VIAL 0 Refills Max dose at bedtime:( )units; sugars< 70,(0)units; sugars 150-199,(1)unit; sugars 200-249,(3)units; sugars 250-299,(5)units; sugars 300-349,(7)units; sugars more than 349,(9)units. 03/02/17 Insulin Human Regular Inj (Novolin R Inj) 1,000 Unit/10 Ml Vial, 0 SQ DIRECTED for Blood Sugar Management, #10 ML 0 Refills Sliding Scale As Directed. 06/27/16 Discontinued Scripts Ivkbihrldq-Kelulzskbqboy-Spblplab (Fioricet) 50-300-40 Mg Cap, 1-2 CAP PO Q6H Y for HEADACHE, #14 CAP 0 Refills Prov:Paco Sparrow MD 04/11/17 Amoxicillin-Clavulanate (Augmentin) 875-125 Mg Tab, 1 TAB PO BID for Infection for 7 Days, #14 TAB 0 Refills Prov:Paco Sparrow MD 04/11/17 Review of Systems General / Constitutional: No: Fever, Weight Gain, Chills, Other Eyes: No: Diploplia, Blurred Vision, Visual changes, Pain, Photophobia HENT: No: Headaches, Vertigo, Lightheadedness Cardiovascular: No: Irregular Rhythm, Chest Pain or Discomfort, Palpitations, Tachycardia, Syncope, Varicosities, Edema, Cyanosis Respiratory: No: Cough, Short of Breath, Other Gastrointestinal: No: Nausea, Vomiting, Diarrhea Genitourinary: No: Decreased Urinary Output, Oliguria Musculoskeletal: No: Limited ROM, Weakness, Cramping, Edema, Pain Skin: No Rash, No Itching, No Dryness, No Lumps, No Change in Pigmentation, No Change in Nails, No Alopecia, No Lesions Neurologic: No: Weakness, Dizziness, Syncope, Focal Abnormalities, Coordination Problem, Headache, Slurred Speech, Seizures Psychiatric: No: Depression, Suicidal Ideations, Homicidal Ideation Endocrine: No: Heat Intolerance, Cold Intolerance, Polydipsia, Polyuria, Other Physical Exam Vital Signs Date Time Temp Pulse Resp B/P (MAP) Pulse Ox O2 Delivery O2 Flow Rate FiO2 07/19/17 08:40 75 141/87 (105) 07/19/17 08:35 76 142/84 (103) 07/19/17 08:30 78 144/85 (104) 07/19/17 08:25 88 150/89 (109) 07/19/17 08:20 89 152/95 (114) 07/19/17 08:15 90 150/94 (112) 07/19/17 08:10 99 155/96 (115) 07/19/17 08:06 102 161/93 (115) 07/19/17 08:06 19 07/19/17 08:00 90 156/92 (113) 07/19/17 08:00 94 07/19/17 07:56 92 155/97 (116) 07/19/17 07:47 17 07/19/17 07:35 83 145/95 (112) 07/19/17 07:34 85 07/19/17 05:51 98.4 18 07/19/17 05:39 80 07/19/17 05:39 134/89 (104) 07/19/17 01:52 97.7 07/19/17 01:45 75 153/95 (114) 07/18/17 23:30 18 07/18/17 21:50 75 136/89 (105) Narrative GENERAL: Well-nourished, well-developed patient. SKIN: Warm and dry. HEAD: Normocephalic and atraumatic. EYES: No scleral icterus. No injection or drainage. ENT: No nasal drainage noted. Mucous membranes pink. Airway patent. NECK: Supple, trachea midline. No JVD. CARDIOVASCULAR: Regular rate and rhythm without murmurs, gallops, or rubs. RESPIRATORY: Breath sounds equal bilaterally. No accessory muscle use. ABDOMEN/GI: Abdomen soft, non-tender, bowel sounds present, no rebound, no guarding Gravid to 40 weeks size GENITOURINARY: External Genitalia: intact and normal in appearance BUS glands: [-] cervix 1-2/25/-3, post soft Presentation: [ceph] Membranes: [intact] Uterine Contractions: [-] FHT's: Category:I EXTREMITIES: No cyanosis or edema. BACK: Nontender without obvious deformity. No CVA tenderness. NEUROLOGICAL: Awake and alert. Motor and sensory grossly within normal limits. Five out of 5 muscle strength in all muscle groups. Normal speech. Caprini VTE Risk Assessment Caprini VTE Risk Assessment: No/Low Risk (score <= 1) Caprini Risk Assessment Model Point Value = 1 Point Value = 2 Point Value = 3 Point Value = 5 Age 41-60 Minor surgery BMI > 25 kg/m2 Swollen legs Varicose veins or History of unexplained or recurrent spontaneous Oral contraceptives or hormone replacement Sepsis (< 1 month) Serious lung disease, including pneumonia (< 1 month) Abnormal pulmonary function Acute myocardial infarction Congestive heart failure (< 1 month) History of inflammatory bowel disease Medical patient at bed rest Age 61-74 Arthroscopic surgery Major open surgery (> 45 min) Laparoscopic surgery (> 45 min) Malignancy Confined to bed (> 72 hours) Immobilizing plaster cast Central venous access Age >= 75 History of VTE Family history of VTE Factor V Leiden Prothrombin [id number] Lupus anticoagulant Anticardiolipin antibodies Elevated serum homocysteine Heparin-induced thrombocytopenia Other congenital or acquired thrombophilia Stroke (< 1 month) Elective arthroplasty Hip, pelvis, or leg fracture Acute spinal cord injury (< 1 month) Prophylaxis Regimen Total Risk Factor Score Risk Level Prophylaxis Regimen 0-1 Low Early ambulation 2 Moderate Order ONE of the following: *Sequential Compression Device (SCD) *Heparin 5000 units SQ BID 3-4 Higher Order ONE of the following medications: *Heparin 5000 units SQ TID *Enoxaparin/Lovenox 40 mg SQ daily (WT < 150 kg, CrCl > 30 mL/min) *Enoxaparin/Lovenox 30 mg SQ daily (WT < 150 kg, CrCl > 10-29 mL/min) *Enoxaparin/Lovenox 30 mg SQ BID (WT < 150 kg, CrCl > 30 mL/min) AND/OR *Sequential Compression Device (SCD) 5 or more Highest Order ONE of the following medications: *Heparin 5000 units SQ TID (Preferred with Epidurals) *Enoxaparin/Lovenox 40 mg SQ daily (WT < 150 kg, CrCl > 30 mL/min) *Enoxaparin/Lovenox 30 mg SQ daily (WT < 150 kg, CrCl > 10-29 mL/min) *Enoxaparin/Lovenox 30 mg SQ BID (WT < 150 kg, CrCl > 30 mL/min) AND *Sequential Compression Device (SCD) Data Data Vital Signs Reviewed: Yes Orders Orders Diet 2200 Ada Cons Carb (07/18/17 Dinner) Admit To Inpatient (07/18/17 ) Activity Oob Ad Brianne (07/18/17 21:14) ^ Labor Induction (07/18/17 21:14) ^ Vaginal Insert (07/18/17 21:14) ^ Vaginal Lavage (07/18/17 21:14) Heart (07/18/17 21:14) Admit To Inpatient (07/18/17 ) Vital Signs (Adult) .Per protocol (07/18/17 21:15) Activity Oob Ad Brianne (07/18/17 21:15) Heart (07/18/17 21:15) Amnioinfusion (07/18/17 21:15) Urinary Catheter Management .ONCE (07/18/17:15) Complete Blood Count With Diff (07/18/17 21:15) Hold Clot (07/18/17 21:15) Abo/Rh Blood Type (07/18/17 21:15) Urinalysis - C+S If Indicated (07/18/17:15) Ob/Psych Drug Screen, Urine (07/18/17:15) Resp Oxygen Non Rebreathe Mask (07/18/17 ) ^ Epidural / Intrathecal Infus (07/18/17 21:15) Comprehensive Metabolic Panel (07/18/17:17) ^ Non Stress Test (07/18/17:17) Response To Medication .Post New Med Administration, Reaction (07/18/17 21:17) ^ Discontinue Medication (07/18/17 21:17) Dinoprostone Vag Insert (Cervidil Vag In (07/18/17 22:00) Sodium Chloride 0.9% Flush (Ns Flush) (07/18/17 21:30) Sodium Chlor 0.9% 1000 Ml Inj (Ns 1000 M (07/18/17 21:30) Lactated Ringer's 1000 Ml Inj (Lr 1000 M (07/19/17 02:15) Sodium Chlorid 0.9% 500 Ml Inj (Ns 500 M (07/19/17 02:15) Sodium Chlor 0.9% 1000 Ml Inj (Ns 1000 M (07/19/17 02:15) Lidocaine 1% Inj (50 Ml) (Xylocaine 1% I (07/19/17 02:15) Citric Acid-Sodium Citrate Liq (Bicitra (07/19/17 02:15) Ondansetron Inj (Zofran Inj) (07/19/17 02:15) Fentanyl Inj (Fentanyl Inj) (07/19/17 02:15) Fentanyl Inj (Fentanyl Inj) (07/19/17 02:15) Oxytocin 30 Units-500ml Premix (Pitocin (07/19/17 02:15) Lidocaine 1% Inj (50 Ml) (Xylocaine 1% I (07/19/17 02:15) Light Mineral Oil (Muri-Lube Oil) (07/19/17 02:15) Zolpidem (Ambien) (07/19/17 02:15) Acetaminophen (Tylenol) (07/19/17 02:15) Lactated Ringer's 1000 Ml Inj (Lr 1000 M (07/19/17 02:15) Oxytocin 30 Units-500ml Premix (Pitocin (07/19/17 06:45) Fentanyl 2mcg-Bupiv 0.125% Inj (Fentanyl (07/19/17 07:45) Ephedrine/Ns 25 Mg/5 Ml Syr (Ephedrine/N (07/19/17 07:45) ^ Non Stress Test (07/19/17 07:59) Response To Medication .Post New Med Administration, Reaction (07/19/17 07:59) ^ Discontinue Medication (07/19/17 07:59) Oxytocin 30 Units-500ml Premix (Pitocin (07/19/17 08:00) Lidoca-Epi Pf 2%-1:200,000 Inj (Xylocain (07/19/17 08:01) Group B Strep: Positive Labs Laboratory Tests Test 07/18/17 20:15 07/18/17 20:55 Urine Color YELLOW Urine Turbidity HAZY Urine pH 6.5 Urine Specific [place] 1.028 Urine Protein 30 Urine Glucose (UA) 70 Urine Ketones TRACE Urine Occult Blood NEG Urine Nitrite NEG Urine Bilirubin NEG Urine Urobilinogen 2.0 Urine Leukocyte Esterase MOD Urine RBC LESS THAN 1 Urine WBC 7 Urine Squamous Epithelial Cells 5 Urine Bacteria RARE Urine Mucus MANY Microscopic Urinalysis Comment CULT NOT INDICATED Urine Opiates Screen NEG Urine Barbiturates Screen NEG Urine Amphetamines Screen NEG Urine Benzodiazepines Screen NEG Urine Cocaine Screen NEG Urine Cannabinoids Screen NEG White Blood Count 10.5 Red Blood Count 4.08 Hemoglobin 12.3 Hematocrit 36.3 Mean Corpuscular Volume 88.9 Mean Corpuscular Hemoglobin 30.1 Mean Corpuscular Hemoglobin Concent 33.9 Red Cell Distribution Width 13.2 Platelet Count 163 Mean Platelet Volume 11.8 Neutrophils (%) (Auto) 70.2 Lymphocytes (%) (Auto) 20.5 Monocytes (%) (Auto) 8.6 Eosinophils (%) (Auto) 0.2 Basophils (%) (Auto) 0.5 Neutrophils # (Auto) 7.4 Lymphocytes # (Auto) 2.1 Monocytes # (Auto) 0.9 Eosinophils # (Auto) 0.0 Basophils # (Auto) 0.1 CBC Comment DIFF FINAL Differential Comment Blood Urea Nitrogen 9 Creatinine 0.78 Random Glucose 61 Total Protein 7.8 Albumin 3.4 Calcium Level 9.2 Alkaline Phosphatase 171 Aspartate Amino Transf (AST/SGOT) 16 Alanine Aminotransferase (ALT/SGPT) 15 Total Bilirubin 0.7 Sodium Level 139 Potassium Level 3.5 Chloride Level 106 Carbon Dioxide Level 22.9 Anion Gap 10 Estimat Glomerular Filtration Rate 94 Assessment/Plan Problem List: (1) 37 weeks gestation of ICD Codes: Z3A.37 - 37 weeks gestation of Status: Acute (2) Insulin dependent diabetes mellitus ICD Codes: E11.9 - Insulin dependent diabetes mellitus; Z79.4 - intermediate card tender ( current) use of insulin Status: Chronic (3) Gestational hypertension ICD Codes: O13.9 - Gestational [-induced] hypertension without significant proteinuria, unspecified trimester Status: Acute Qualifiers: Qualified Codes: O13.3 - Gestational [-induced] hypertension without significant proteinuria, third trimester Assessment and Plan 22 yo G1 with nelson IUP at 37w2d, admit for labor induction at term due to type I insulin dependent diabetes 1) IOL: discussed can be a long process, risk of arrest of labar and potential need for cd. s/p cervidil overnight, AROM'd clear fluid this AM with Dr. Knapp , pitocin ordered, continue active mgmt 2) GBS +: for PCN ppx 3) IDDM: accuchecks and SS ordered. HAs insulin pump. Decrease dose to half pp. HAs had twice weekly testing starting at 32 weeks. 4) gestational HTN: mild range BPs, asymptomatic, no features of severity on labs 5) status: Cat I tracing currently. LGA, approx 7.5lb Bonnie Wheeler MD July 19, 2017 09:02
[2017-07-19] MEDS ORDERED: NO SYSTEM NARCOTICS PRN (09:45)
[2017-07-19] MEDS ORDERED: DO NOT ADMINISTER ANTICOAGULANTS PRN (09:45)
[2017-07-19] MEDS ORDERED: ePHEDrine/NS 25 MG/5 ML SYRINGE IV PUSH PRN (09:45)
[2017-07-19] MEDS ORDERED: fentaNYL 2MCG-BUPIV 0.125% 100 ML EPIDURAL PRN (09:45)
[2017-07-19] MEDS ORDERED: TERBUTALINE INJ 1 MG/ML AMP ONE (11:26)
[2017-07-19] MEDS ORDERED: LACTATED RINGER'S 1000 ML INJ 1,000 ML IV ONE ×2 (11:48→12:00)
--- NOTE | 2017-07-19 11:57 | PD.LABORPN ---
Subjective Subjective feeling tired, had GOULD earlier today but resolved w tylenol Objective Vital Signs Vital Signs Date Time Temp Pulse Resp B/P (MAP) Pulse Ox O2 Delivery O2 Flow Rate FiO2 07/19/17 11:30 66 07/19/17 11:25 69 07/19/17 11:24 17 07/19/17 11:20 70 07/19/17 11:16 71 123/72 (89) 07/19/17 11:15 72 07/19/17 11:07 18 07/19/17 11:05 78 07/19/17 11:00 72 07/19/17 11:00 74 148/92 (110) 07/19/17 10:55 76 07/19/17 10:45 74 07/19/17 10:45 72 140/89 (106) 07/19/17 10:40 72 07/19/17 10:37 16 07/19/17 10:35 72 07/19/17 10:30 73 07/19/17 10:28 18 07/19/17 10:15 75 07/19/17 10:15 146/93 (110) 07/19/17 10:10 76 07/19/17 10:05 79 07/19/17 10:01 77 125/72 (89) 07/19/17 10:00 79 07/19/17 09:55 79 07/19/17 09:50 97.9 07/19/17 09:50 92 07/19/17 09:45 84 07/19/17 09:45 85 139/88 (105) 07/19/17 09:40 87 07/19/17 09:30 87 07/19/17 09:30 140/80 (100) 07/19/17 09:15 92 07/19/17 09:10 93 07/19/17 09:05 91 07/19/17 09:00 89 142/87 (105) 07/19/17 09:00 94 07/19/17 08:55 90 147/86 (106) 07/19/17 08:55 90 07/19/17 08:50 78 07/19/17 08:50 82 146/88 (107) 07/19/17 08:47 17 07/19/17 08:45 75 18 145/87 (106) 07/19/17 08:45 78 07/19/17 08:40 75 141/87 (105) 07/19/17 08:40 75 07/19/17 08:35 74 07/19/17 08:35 76 142/84 (103) 07/19/17 08:30 78 07/19/17 08:30 78 144/85 (104) 07/19/17 08:25 84 07/19/17 08:25 88 150/89 (109) 07/19/17 08:20 89 152/95 (114) 07/19/17 08:20 91 07/19/17 08:15 90 150/94 (112) 07/19/17 08:10 99 155/96 (115) 07/19/17 08:06 102 161/93 (115) 07/19/17 08:06 19 07/19/17 08:00 90 156/92 (113) 07/19/17 08:00 94 07/19/17 07:56 92 155/97 (116) 07/19/17 07:47 17 07/19/17 07:35 83 145/95 (112) 07/19/17 07:34 85 07/19/17 05:51 98.4 18 07/19/17 05:39 80 07/19/17 05:39 134/89 (104) Objective Pelvic Exam: Cervix: /hi, molding and caput. 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 Baby is OT. Discussed w pt that CD would be indicated at this time. She and mother are in agreement w plan of care. OR team informed. Bonnie Wheeler MD July 19, 2017 11:57
[2017-07-19] MEDS ORDERED: DEXAMETHASONE SOD PHOS 4 MG/ML VIAL IV ONE (12:00)
[2017-07-19] MEDS ORDERED: LIDOCAINE 2%/EPINEPHrine PF 1:200,000 20ML SDV OTHER ONE (12:00)
[2017-07-19] MEDS ORDERED: OXYTOCIN 10 UNIT/ML AMP IV ONE (12:00)
[2017-07-19] MEDS ORDERED: PROPOFOL 200 MG/20 ML AMP IV ONE (12:00)
[2017-07-19] MEDS ORDERED: ONDANSETRON HCL 4 MG/2 ML VIAL IV ONE (12:00)
[2017-07-19] MEDS ORDERED: ceFAZolin INJ 1,000 MG VIAL IV ONE (12:00)
[2017-07-19] MEDS ORDERED: LACTATED RINGER'S 1000 ML INJ 1,000 ML IV SCH ×2 (12:18→18:07)
[2017-07-19] MEDS ORDERED: MORPHINE SULFATE PF 5 MG/10 ML VIAL ONE (12:21)
[2017-07-19] MEDS ORDERED: ceFAZolin 2 GM PREMIX 50 ML IV SCH (13:00)
--- NOTE | 2017-07-19 13:05 | PD.OB.DELI ---
Procedure Note Section Procedure Pre Op Diagnosis: (1) Non-reassuring electronic monitoring tracing (2) Insulin dependent diabetes mellitus (3) 37 weeks gestation of (4) Gestational hypertension Post Op Diagnosis: (1) Insulin dependent diabetes mellitus (2) Gestational hypertension (3) 37 weeks gestation of (4) Non-reassuring electronic monitoring tracing Performed by Bonnie Wheeler Procedure: Primary Low Transverse Sec Indication for delivery: Nonreassuring heart tracing, malposition ( OP), Other (cpd) Previous condition: None Informed consent obtained: For anesthesia, For procedure Confirmed correct: Patient, Procedure, Site, Time-out taken Anesthesia: Epidural Medication prior to procedure: As documented in eMAR Monitoring during procedure: Blood pressure monitoring, Pulse oximetry Urinary catheter: Inserted using sterile technique, To dependent drainage, ml urine output (300) Sterile preparation: With 2% chlorexidine (Hibiclens) Position: Supine with wedge to right side, Supine with safety belt applied Operative Features Skin Incision: Pfannenstiel Uterine Incision: Low transverse w/knife / blunt ext Membranes Ruptured: Artificially, Previously Presentation: Occiput posterior Delivery date: July 19, 2017 Delivery time: 12:27 Delivery of : Uneventful : Male One Minute : 8 Five Minute : 9 Weight: 3450g Status of : Viable, Cord blood, Nursery present Placenta delivered: Intact Medications: Antibiotics, Oxytocin Estimated blood loss: 500ml Procedure tolerated: Well Maternal Condition: Stable Condition: Stable Procedure in detail [id number] dict number Bonnie Wheeler MD July 19, 2017 13:05
[2017-07-19] MEDS ORDERED: SIMETHICONE 80 MG CHEWABLE TAB PO PRN (13:15)
[2017-07-19] MEDS ORDERED: SODIUM CHLORIDE 0.9% FLUSH 10 ML FLUSH IV FLUSH PRN (13:15)
[2017-07-19] MEDS ORDERED: IBUPROFEN 600 MG TAB PO PRN (13:15)
[2017-07-19] MEDS ORDERED: OXYTOCIN 30 UNITS-500ML PREMIX 500 ML IV ONE (13:15)
[2017-07-19] MEDS ORDERED: oxyCODONE/ACETAMINOPHEN 5 MG/325 MG TAB PO PRN ×2 (13:15)
--- NOTE | 2017-07-19 13:35 | MP ---
cc: Bonnie Wheeler MD DATE OF OPERATION: 07/19/2017 DATE OF PROCEDURE: 07/19/2017. PREOPERATIVE DIAGNOSES: 1. Type 1 diabetes mellitus. 2. Gestational hypertension. 3. Nonreassuring heart tones. 4. Suspect cephalopelvic disproportion. 5. Group B Streptococcus positive. POSTOPERATIVE DIAGNOSES: 1. Type 1 diabetes mellitus. 2. Gestational hypertension. 3. Nonreassuring heart tones. 4. Suspect cephalopelvic disproportion, OP presentation. 5. Group B Streptococcus positive. PROCEDURE PERFORMED: Primary low transverse delivery. SURGEON: Bonnie Wheeler MD METER READER CHIEF: [facility] staff. INDICATIONS: The patient is a 22-year-old G1 with intrauterine at 37 weeks and 1 day, who was admitted for induction of labor for type 1 diabetes mellitus and gestational hypertension. Her induction was started with Cervidil overnight. In the morning she was tonya on her own. Artificial rupture of membrane was performed. She began to develop subtle late decelerations and then decreased variability. Exam was performed when she was 5 cm dilated, 75% effaced, but very high station. There was already molding and the fetus thought to be between OT and OP presentation. Discussion was held with the family that she was remote from delivery and had a category II tracing, and it appeared that she had cephalopelvic disproportion. The family was in agreement with proceeding with a delivery. Consents previously signed and on chart. ANESTHESIA: Epidural COMPLICATIONS: None. IV FLUIDS: 800 mL of lactated ringer. ESTIMATED BLOOD LOSS: 500 mL URINE OUTPUT: 300 mL COUNTS: Correct x3. SPECIMENS: Cord blood. INTRAOPERATIVE FINDINGS: Viable male infant with Apgars of 8 and 9 at 1 minute and 5 minutes respectively. weight at 3450 grams. Three-vessel cord. OP presentation. Placenta delivered intact. Uterus, tubes, and ovaries within normal limits. PREOPERATIVE ANTIBIOTICS: Ancef 2 grams IV given pre-incision. DVT PROPHYLAXIS: Bilateral lower extremity SCDs. PROCEDURE IN DETAIL: After review of informed consent, the patient was taken to the operating room, where epidural was confirmed to be adequate. Salcedo was already in place. SCDs were placed. The abdomen was prepped and draped in normal sterile fashion. A Pfannenstiel skin incision was made with a scalpel, carried down to underlying layer of fascia with the Bovie. The fascia was incised in the midline and extended bilaterally with Cline scissors. Willis clamps were used in the anterior aspect of the fascia. The fascia was tented and the rectus muscles were dissected off with Cline scissors. The same was repeated inferiorly. The rectus muscles were in the midline with a hemostat. The peritoneum was entered bluntly. This was extended bluntly, as well as with the Bovie. A bladder blade was placed. A bladder flap was created with Metzenbaum scissors and further developed digitally. The bladder blade was replaced. A low transverse uterine incision was made with a scalpel. The incision was extended bluntly. The head was suctioned in the pelvis, the head was flexed and elevated to the hysterotomy. At this point, gentle fundal pressure was used for delivery of the head and the rest of the body readily followed. Delayed cord clamping was performed. The baby was bulb suctioned, the cord was doubly clamped and cut. Cord blood was collected. The baby was handed off to the waiting pediatricians. After delivery of the , immediate infusion of Pitocin was started. The placenta was removed with gentle cord traction and uterine massage and the uterus was exteriorized and cleared of all clots and debris with a moist laparotomy sponge. The uterus was repaired in 2 layers with #1 chromic in a running locked fashion followed by imbricated layer. The abdomen was irrigated and suctioned. The uterus was returned to the abdomen. Good hemostasis was noted. The peritoneum was closed with 2-0 chromic in a running fashion. The fascia was closed with #1 Vicryl in a running fashion. The subcutaneous tissue was irrigated and suctioned. Good hemostasis was noted. 2-0 chromic was used to close this layer. The skin was closed with 3-0 Monocryl in a subcuticular fashion. Steri-Strips were placed, followed by Primapore dressing. The patient tolerated the procedure well. She is a candidate for trial of labor after delivery. She was sent to PACU in stable condition. MD MARY Streeter/JOHN , 01:03 PM , 01:34 PM CJ
[2017-07-19] MEDS ORDERED: ACETAMINOPHEN 1000 MG/100 ML 100 ML IV ONE (13:44)
[2017-07-19] MEDS ORDERED: EPIDURAL-DIPHENHYDRAMINE HCL 50 MG CAP PO PRN (15:00)
[2017-07-19] MEDS ORDERED: EPIDURAL-NALOXONE HCL 0.4 MG/ML AMP IV PUSH PRN (15:00)
[2017-07-19] MEDS ORDERED: EPIDURAL-NO SYSTEMIC NARCOTICS PRN (15:00)
[2017-07-19] MEDS ORDERED: EPIDURAL-DO NOT ADMINISTER ANTICOAGULANTS PRN (15:00)
[2017-07-19] MEDS ORDERED: EPIDURAL-DIPHENHYDRAMINE HCL 50 MG/ML VIAL IV PUSH PRN (15:00)
[2017-07-19] MEDS: INSULIN NovoLIN REGULAR SUPPLEMENTAL SCALE SQ SCH (17:00)
[2017-07-19] MEDS: KETOROLAC TROMETHAMINE 30 MG/ML (IVP) VIAL IV PUSH PRN (18:21)
[2017-07-20] VITALS: BP 137/86; PULSE 84; RESP 18; TEMP 98.7
[2017-07-20] MEDS: KETOROLAC TROMETHAMINE 30 MG/ML (IVP) VIAL IV PUSH PRN ×2 (01:23→09:40)
[2017-07-20 04:00] VITALS: BP 135/90; PULSE 79; RESP 18; TEMP 98.3
[2017-07-20 05:49] LABS: AUTOMATED NEUTROPHIL # 7.4 TH/MM3 (1.8-7.7); BASOPHIL % 0.2 % (0.0-2.0); EOSINOPHIL % 0.1 % (0.0-4.0); HEMATOCRIT 26.2 % (35.0-46.0); HEMOGLOBIN 9.2 GM/DL (11.6-15.3); LYMPH % 11.9 % (9.0-44.0); LYMPHOCYTE # 1.1 TH/MM3 (1.0-4.8); MEAN CELL VOLUME 88.5 FL (80.0-100.0); MONO % 6.6 % (0.0-8.0); MONOCYTE # 0.6 TH/MM3 (0-0.9); NEUT % 81.2 % (16.0-70.0); PLATELET COUNT 140 TH/MM3 (150-450); RED BLOOD COUNT 2.97 MIL/MM3 (4.00-5.30); RED CELL DISTRIBUTION WIDTH 13.4 % (11.6-17.2); WHITE BLOOD COUNT 9.1 TH/MM3 (4.0-11.0)
[2017-07-20] MEDS: INSULIN NovoLIN REGULAR SUPPLEMENTAL SCALE SQ SCH ×3 (07:38→17:00)
[2017-07-20 08:55] VITALS: BP 136/92; PULSE 96; RESP 16; TEMP 98
[2017-07-20] MEDS: DOCUSATE SODIUM 50 MG/SENNA 8.6 MG TAB PO PRN (09:40)
--- NOTE | 2017-07-20 10:18 | HHI.OB ---
Subjective Post Operative Day: 1 Remarks POD#1; Doing well,blood sugars have improved. Objective Vitals/I&O Vital Signs Date Time Temp Pulse Resp B/P (MAP) Pulse Ox O2 Delivery O2 Flow Rate FiO2 07/20/17 04:00 135/90 (105) 07/20/17 04:00 98.3 79 18 07/20/17 00:00 98.7 07/20/17 00:00 84 18 137/86 (103) 07/19/17 20:00 98.3 90 18 07/19/17 20:00 149/93 (111) 07/19/17 14:00 105 123/65 (84) 07/19/17 14:00 98.0 07/19/17 13:54 19 07/19/17 13:45 105 18 121/64 (83) 07/19/17 13:30 118/55 (76) 07/19/17 13:24 110 07/19/17 13:23 21 07/19/17 13:15 19 07/19/17 13:15 111 113/57 (75) 07/19/17 13:00 116 115/57 (76) 07/19/17 13:00 98.2 20 07/19/17 12:45 0 07/19/17 11:45 97 07/19/17 11:45 146/98 (114) 07/19/17 11:40 68 07/19/17 11:30 66 07/19/17 11:30 137/75 (95) 07/19/17 11:25 69 07/19/17 11:24 17 07/19/17 11:20 70 07/19/17 11:16 71 123/72 (89) 07/19/17 11:15 72 07/19/17 11:07 18 07/19/17 11:05 78 07/19/17 11:00 72 07/19/17 11:00 74 148/92 (110) 07/19/17 10:55 76 07/19/17 10:45 74 07/19/17 10:45 72 140/89 (106) 07/19/17 10:40 72 07/19/17 10:37 16 07/19/17 10:35 72 07/19/17 10:30 73 07/19/17 10:28 18 Result Diagram: 07/20/17 0513 07/18/172054 Objective Remarks GENERAL: Well-nourished, well-developed patient. CARDIOVASCULAR: Regular rate and rhythm without murmurs, gallops, or rubs. RESPIRATORY: Breath sounds equal bilaterally. No accessory muscle use. ABDOMEN/GI: Abdomen soft, non-tender, bowel sounds present. Incision: Clean, dry and intact. Fundus: Firm, non-tender at umbilicus. GENITOURINARY: Light to moderate bleeding. EXTREMITIES: No cyanosis or edema, non-tender, without signs of DVT. Medications and IVs Current Medications Medications (Trade) Dose Ordered Sig/Sunil Route Start Time Stop Time Status Last Admin (NovoLIN R SUPPLEMENTAL SCALE) 1 TIDAC SQ 07/19/17 17:00 Lactated Ringer's 1,000 ml @ 100 mls/hr Q10H IV 07/19/17 18:07 07/20/17 14:06 07/19/17 21:59 Oxytocin 500 ml @ 100 mls/hr UNSCH X1 PRN IV 07/19/17 18:15 07/20/17 18:14 (NS Flush) 2 ml BID IV FLUSH 07/19/17 21:00 (NS Flush) 2 ml UNSCH PRN IV FLUSH 07/19/17 13:15 (Mylicon Chew) 80 mg QID PRN PO 07/19/17 13:15 (Tylenol) 650 mg Q6H PRN PO 07/19/17 13:15 (Percocet 5-325 Mg) 1 tab Q4H PRN PO 07/19/17 13:15 07/20/17 06:17 (Percocet 5-325 Mg) 2 tab Q4H PRN PO 07/19/17 13:15 (Ingrid-Colace) 2 tab Q12H PRN PO 07/19/17 13:15 07/20/17 09:40 (M-M-R Ii Inj) 0.5 ml ONCE ONCE SQ 07/20/17 16:00 07/20/17 16:01 (Boostrix Inj) 0.5 ml ONCE ONCE IM 07/20/17 16:00 07/20/17 16:01 (Zofran Inj) 4 mg Q6H PRN IV PUSH 07/19/17 13:15 ([facility] [place] [facility] Nursing Information) NO SYSTEMIC NARCOTICS TO BE GIVEN FO... UNSCH PRN .XX 07/19/17 15:00 07/20/17 14:59 (Narcan Inj) 0.4 mg UNSCH PRN IV PUSH 07/19/17 15:00 07/20/17 14:59 (Benadryl Inj) 25 mg Q6H PRN IV PUSH 07/19/17 15:00 07/20/17 14:59 (Benadryl) 50 mg Q6H PRN PO 07/19/17 15:00 07/20/17 14:59 07/19/17 21:58 ([facility] Nursing Information) ALL NURSING DEPARTMENTS UNSCH PRN .XX 07/19/17 15:00 07/20/17 14:59 (Motrin) 600 mg Q6H PRN PO 07/20/17 12:00 Assessment/Plan Problem List: (1) 37 weeks gestation of ICD Codes: Z3A.37 - 37 weeks gestation of Status: Acute (2) Insulin dependent diabetes mellitus ICD Codes: E11.9 - Insulin dependent diabetes mellitus; Z79.4 - [facility] ( current) use of insulin Status: Chronic (3) Gestational hypertension ICD Codes: O13.9 - Gestational [-induced] hypertension without significant proteinuria, unspecified trimester Status: Acute Qualifiers: Qualified Codes: O13.3 - Gestational [-induced] hypertension without significant proteinuria, third trimester Assessment and Plan 22 yo G1 with nelson IUP at 37w2d, admit for labor induction at term due to type I insulin dependent diabetes 1) IOL: discussed can be a long process, risk of arrest of labar and potential need for cd. s/p cervidil overnight, AROM'd clear fluid this AM with Dr. Knapp , pitocin ordered, continue active mgmt 2) GBS +: for PCN ppx 3) IDDM: accuchecks and SS ordered. HAs insulin pump. Decrease dose to half pp. HAs had twice weekly testing starting at 32 weeks. 4) gestational HTN: mild range BPs, asymptomatic, no features of severity on labs 5) status: Cat I tracing currently. LGA, approx 7.5lb 07/20/17 POD#1, s/p CD, Stable ,BS stable advance activity as tolerated Discharge Planning plan for pod#3 Attending Attestation seen by Nick Adams MD 16, 2018 10:18
[2017-07-20] MEDS ORDERED: IBUPROFEN 600 MG TAB PO PRN ×2 (10:30→12:00)
[2017-07-20] MEDS: SODIUM CHLORIDE 0.9% FLUSH 10 ML FLUSH IV FLUSH SCH (10:40)
[2017-07-20] MEDS: oxyCODONE HCL ORAL CONC 5 MG/0.25 ML SYRINGE PO PRN ×4 (12:06→23:35)
--- NOTE | 2017-07-20 15:47 | HHI.DCPOC ---
Discharge Care Plan Diagnosis: (1) delivery delivered (2) 37 weeks gestation of (3) Non-reassuring electronic monitoring tracing (4) Insulin dependent diabetes mellitus (5) Gestational hypertension Your Health Problems Are: delivery Report Symptoms to Your Doctor -Temperature above 100.5 degrees -Redness, of incision or excessive or foul smelling drainage -Unusual pain or calf pain -Increased vaginal bleeding -Painful or difficulty urinating -Feelings of extreme sadness or anxiety after 2 weeks Goals to Promote Your Health * To prevent worsening of your condition and complications * To maintain your health at the optimal level Directions to Meet Your Goals Take your medications as prescribed Follow your dietary instruction Follow activity as directed Ensure plenty of rest for recovery Drink fluids for hydration Keep your appointments as scheduled Take your immunizations and boosters as scheduled If your symptoms worsen call your PCP, if no PCP go to Urgent Care Center or Emergency Room Smoking is Dangerous to Your Health. Avoid second hand smoke Call the 24-hour crisis hotline for domestic abuse at Bennie Ratliff MD July 20, 2017 15:47
[2017-07-20] MEDS ORDERED: MEASLES, MUMPS, RUBELLA VACCINE 0.5 ML VIAL SQ ONE (16:00)
[2017-07-20] MEDS ORDERED: DIPHTH/TETANUS/ACEL PERTUSSIS (BOOSTER) 0.5 ML VIAL/PFS IM ONE (16:00)
[2017-07-20 20:00] VITALS: BP 140/95; PULSE 101; RESP 18; TEMP 98.7
[2017-07-21] MEDS: oxyCODONE HCL ORAL CONC 5 MG/0.25 ML SYRINGE PO PRN ×3 (03:46→23:18)
[2017-07-21] MEDS: KETOROLAC TROMETHAMINE 30 MG/ML (IVP) VIAL IV PUSH PRN ×3 (06:43→23:17)
[2017-07-21] MEDS: INSULIN NovoLIN REGULAR SUPPLEMENTAL SCALE SQ SCH ×3 (08:00→17:21)
[2017-07-21] MEDS ORDERED: HYDROmorphone HCL 4 MG TAB PO PRN (08:15)
[2017-07-21] MEDS ORDERED: HYDROmorphone HCL 2 MG TAB PO PRN (08:15)
[2017-07-21] MEDS: SODIUM CHLORIDE 0.9% FLUSH 10 ML FLUSH IV FLUSH SCH (09:00)
--- NOTE | 2017-07-21 09:00 | HHI.OB ---
Subjective Post Operative Day: 2 Remarks doing well, pt states pain still not well controlled, VB < menses, no nausea or vomiting, tolerating PO, ambulating. Objective Vitals/I&O Vital Signs Date Time Temp Pulse Resp B/P (MAP) Pulse Ox O2 Delivery O2 Flow Rate FiO2 07/20/17 20:00 98.7 101 18 140/95 (110) 07/20/17 08:55 96 136/92 (107) 07/20/17 08:55 98.0 16 Result Diagram: 07/20/1751207/18/172054 Objective Remarks GENERAL: Well-nourished, well-developed patient. CARDIOVASCULAR: Regular rate and rhythm without murmurs, gallops, or rubs. RESPIRATORY: Breath sounds equal bilaterally. No accessory muscle use. ABDOMEN/GI: Abdomen soft, non-tender, bowel sounds present. Incision: Clean, dry and intact. Fundus: Firm, non-tender at umbilicus. GENITOURINARY: Light to moderate bleeding. EXTREMITIES: No cyanosis or edema, non-tender, without signs of DVT. Medications and IVs Current Medications Medications (Trade) Dose Ordered Sig/Sunil Route Start Time Stop Time Status Last Admin (NovoLIN R SUPPLEMENTAL SCALE) 1 TIDAC SQ 07/19/17 17:00 (NS Flush) 2 ml BID IV FLUSH 07/19/17 21:00 07/20/17 10:40 (NS Flush) 2 ml UNSCH PRN IV FLUSH 07/19/17 13:15 (Mylicon Chew) 80 mg QID PRN PO 07/19/17 13:15 (Tylenol) 650 mg Q6H PRN PO 07/19/17 13:15 (Ingrid-Colace) 2 tab Q12H PRN PO 07/19/17 13:15 07/20/17 09:40 (Zofran Inj) 4 mg Q6H PRN IV PUSH 07/19/17 13:15 (Motrin) 600 mg Q6H PRN PO 07/20/17 12:00 (Motrin) 600 mg Q6H PRN PO 07/20/17 10:30 (Toradol Inj) 30 mg Q6H PRN IV PUSH 07/21/17 06:30 07/26/17 06:29 07/21/17 06:43 (Roxicodone Intensol Liq) 7.5 mg Q4H PRN PO 07/21/17 08:45 (Roxicodone Intensol Liq) 15 mg Q3H PRN PO 07/21/17 08:45 Assessment/Plan Problem List: (1) 37 weeks gestation of ICD Codes: Z3A.37 - 37 weeks gestation of Status: Acute (2) Insulin dependent diabetes mellitus ICD Codes: E11.9 - Insulin dependent diabetes mellitus; Z79.4 - [employer] ( current) use of insulin Status: Chronic (3) Gestational hypertension ICD Codes: O13.9 - Gestational [-induced] hypertension without significant proteinuria, unspecified trimester Status: Acute Qualifiers: Qualified Codes: O13.3 - Gestational [-induced] hypertension without significant proteinuria, third trimester Assessment and Plan 22 yo s/p PLTCS for NRFHTs at 37w1. 1. POD #2: AF, VSS, pain appears in no discomfort, will increase to oxycodone liquid 7.5/10 prn, pt cannot swallow pills.Hb approrpiate, pt asymptomatic. Anticipate d/c home tomorrow. - male, s/p circ today. 2. DM1: pt 1/2 her basal rate of pump, she is checking her own BS, states all < 180. Followed by endo as an outpatient. 3. GHTN: BPs mild range, discussed prec precautions, will FU 1 week in office for BP check. with nelson IUP at 37w2d, admit for labor induction at term due to type I insulin dependent diabetes Bennie Ratliff MD July 21, 2017 09:00
[2017-07-21] MEDS ORDERED: OXYC1CON4 PO (09:38)
[2017-07-21 21:01] VITALS: BP_SYST 143; BP_SYST 171; BP_DIAS 106; BP_DIAS 95; PULSE 85; RESP 18; TEMP 98.5
[2017-07-21] MEDS: DOCUSATE SODIUM 50 MG/SENNA 8.6 MG TAB PO PRN (23:16)
[2017-07-22] MEDS: oxyCODONE HCL ORAL CONC 5 MG/0.25 ML SYRINGE PO PRN ×3 (04:08→12:39)
[2017-07-22 04:15] VITALS: BP 151/90; PULSE 58
[2017-07-22 08:20] VITALS: BP 165/94; PULSE 60; RESP 18; TEMP 98.2
[2017-07-22] MEDS: KETOROLAC TROMETHAMINE 30 MG/ML (IVP) VIAL IV PUSH PRN ×2 (08:39→14:16)
[2017-07-22] MEDS ORDERED: IRON SUCROSE INJ 200 MG in SODIUM CHLORIDE 0.9% INJ 100 ML IV ONE (09:00)
--- NOTE | 2017-07-22 09:00 | HHI.OB ---
Subjective Post Operative Day: 3 Remarks feeling well ambulating and eating well difficulty swallowing pills--likes toradol wants liquid stool softener Objective Vitals/I&O Vital Signs Date Time Temp Pulse Resp B/P (MAP) Pulse Ox O2 Delivery O2 Flow Rate FiO2 07/22/17 04:15 58 151/90 (110) 07/21/17 21:01 98.5 85 18 171/106 (127) 143/95 (111) Result Diagram: 07/20/1713 07/18/172054 Objective Remarks GENERAL: Well-nourished, well-developed patient. CARDIOVASCULAR: Regular rate and rhythm without murmurs, gallops, or rubs. RESPIRATORY: Breath sounds equal bilaterally. No accessory muscle use. ABDOMEN/GI: Abdomen soft, non-tender, bowel sounds present. Incision: Clean, dry and intact. Fundus: Firm, non-tender at umbilicus. GENITOURINARY: Light to moderate bleeding. EXTREMITIES: No cyanosis or edema, non-tender, without signs of DVT. Medications and IVs Current Medications Medications (Trade) Dose Ordered Sig/Sunil Route Start Time Stop Time Status Last Admin (NovoLIN R SUPPLEMENTAL SCALE) 1 TIDAC SQ 07/19/17 17:00 (NS Flush) 2 ml BID IV FLUSH 07/19/17 21:00 07/20/17 10:40 (NS Flush) 2 ml UNSCH PRN IV FLUSH 07/19/17 13:15 (Mylicon Chew) 80 mg QID PRN PO 07/19/17 13:15 (Tylenol) 650 mg Q6H PRN PO 07/19/17 13:15 (Ingrid-Colace) 2 tab Q12H PRN PO 07/19/17 13:15 07/21/17 23:16 (Zofran Inj) 4 mg Q6H PRN IV PUSH 07/19/17 13:15 (Motrin) 600 mg Q6H PRN PO 07/20/17 12:00 (Motrin) 600 mg Q6H PRN PO 07/20/17 10:30 (Toradol Inj) 30 mg Q6H PRN IV PUSH 07/21/17 06:30 07/26/17 06:29 07/22/17 08:39 (Roxicodone Intensol Liq) 7.5 mg Q4H PRN PO 07/21/17 08:45 07/21/17 23:18 (Roxicodone Intensol Liq) 15 mg Q3H PRN PO 07/21/17 08:45 07/22/17 08:40 Assessment/Plan Problem List: (1) 37 weeks gestation of ICD Codes: Z3A.37 - 37 weeks gestation of Status: Acute (2) Insulin dependent diabetes mellitus ICD Codes: E11.9 - Insulin dependent diabetes mellitus; 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 1. POD #2: AF, VSS, pain appears in no discomfort, will increase to oxycodone liquid 7.5/10 prn, pt cannot swallow pills.Hb approrpiate, pt asymptomatic. Anticipate d/c home tomorrow. - male, s/p circ today. 2. DM1: pt 1/2 her basal rate of pump, she is checking her own BS, states all < 180. Followed by endo as an outpatient. 3. GHTN: BPs mild range, discussed prec precautions, will FU 1 week in office for BP check. with nelson IUP at 37w2d, admit for labor induction at term due to type I insulin dependent diabetes 07/22/17 POD # 3 desires liquid pain medication--preferably toradol diabetes control reasonable and well educated to continue at home BPs quite elevated last night--will begin labatelol give venifer since has saline lock and has constipation take a baby aspirin daily at home reviewed post pre eclampsia, blood clots, depression and any reason to return to [place] or office Can discharge late this afternoon if BPs below 100 diastolic Cris Vail MD July 22, 2017 09:00
[2017-07-22] MEDS ORDERED: LABE100T2 PO (09:02)
--- NOTE | 2017-07-22 09:03 | HHI.DCPOC ---
Discharge Care Plan Report Symptoms to Your Doctor -Temperature above 100.5 degrees -Redness, of incision or excessive or foul smelling drainage -Unusual pain or calf pain -Increased vaginal bleeding -Painful or difficulty urinating -Feelings of extreme sadness or anxiety after 2 weeks symptoms of pre eclampsia and blood clots reviewed Goals to Promote Your Health * To prevent worsening of your condition and complications * To maintain your health at the optimal level Directions to Meet Your Goals Take your medications as prescribed Follow your dietary instruction Follow activity as directed Ensure plenty of rest for recovery Drink fluids for hydration Keep your appointments as scheduled Take your immunizations and boosters as scheduled If your symptoms worsen call your PCP, if no PCP go to Urgent Care Center or Emergency Room Smoking is Dangerous to Your Health. Avoid second hand smoke Call the 24-hour crisis hotline for domestic abuse at Cris Vail MD July 22, 2017 09:03
[2017-07-22] MEDS ORDERED: LABETALOL HCL 100 MG TAB PO SCH (09:15)
[2017-07-22] MEDS ORDERED: KETO10 PO (16:11)
[2017-07-22] MEDS ORDERED: PERC5TAB12 PO (16:12)
== END 2017-07-22 15:19 | disposition home or self-care (01) | DRG 766 ==
LOC: H2EB 19:50 → H1EA 07-19 14:21
PROVIDERS: ADMIT Obstetrics & Gynecology; ATTEND Obstetrics & Gynecology
PROC: 3E0P7VZ Introduction of Hormone into Female Reproductive, Via Natural or Artificial Opening (ICD-10-PCS; 2017-07-18)
PROC: 10D00Z1 Extraction of Products of Conception, Low, Open Approach (ICD-10-PCS; principal; 2017-07-19)
PROC: 10907ZC Drainage of Amniotic Fluid, Therapeutic from Products of Conception, Via Natural or Artificial Opening (ICD-10-PCS; 2017-07-19)
PROC: 3E0R3BZ Introduction of Anesthetic Agent into Spinal Canal, Percutaneous Approach (ICD-10-PCS; 2017-07-19)
PROC: 00HU33Z Insertion of Infusion Device into Spinal Canal, Percutaneous Approach (ICD-10-PCS; 2017-07-19)
DX: O24.02 Pre-existing type 1 diabetes mellitus, in childbirth (principal); O90.89 Other complications of the puerperium, not elsewhere classified; K59.00 Constipation, unspecified; Z79.4 Long term (current) use of insulin; Z96.41 Presence of insulin pump (external) (internal); O13.4 Gestational [pregnancy-induced] hypertension without significant proteinuria, complicating childbirth; O99.824 Streptococcus B carrier state complicating childbirth; O76 Abnormality in fetal heart rate and rhythm complicating labor and delivery; O33.9 Maternal care for disproportion, unspecified; O32.9XX0 Maternal care for malpresentation of fetus, unspecified, not applicable or unspecified; Z37.0 Single live birth; Z3A.37 37 weeks gestation of pregnancy
CPT/HCPCS: 80053; 80307; 81001; 82948; 85025; 85461; 86850; 86900; 86901; 90384; 90715; G0481; J0131; J0690; J1100; J1756; J1885; J2274; J2405; J2540; J2590; J2790; J3010; J3105; J7120; Q0163

== ENCOUNTER 2017-07-24 22:05 | Inpatient (IN) | payer BC ==
[~2017-07-24] VITALS: Ht 160 cm; Wt 77.1 kg
[~2017-07-24 22:05] MED LIST changes: -AUGM875T3 PO; -BUTA1CAP PO; +KETO10 PO; +LABE100T2 PO; +OXYC1CON4 PO; +PERC5TAB12 PO
--- NOTE | 2017-07-24 22:59 | PD ---
HPI Chief Complaint Hypertension Date Seen: July 24, 2017 Time Seen: 22:53 Travel History International Travel<30 Days: No Contact w/Intl Traveler<30Days: No Known Affected Area: No History of Present Illness HPI Patient is a 22-year-old who is 5 days postop from a section performed at 37 weeks gestation. Patient is a type I diabetic who was was complicated by gestational hypertension and she was admitted at 37 weeks with induction of labor and eventual section due to cephalopelvic disproportion and nonreassuring heart rate tracing. Patient continued to have hypertension and was discharged on July 22 with labetalol 100 mg twice daily. She and her mother bought a blood pressure cuff and blood pressures were 140-150/90 at home until earlier this evening when her blood pressure was 200/106. Patient states that she has had daily headaches for a couple hours a day with she has been treating with Tylenol and some abdominal pain that she is having difficulty delineating the source whether it be epigastric in nature or incision pain. Patient denies any visual issues. Some pedal edema which is increased slightly within the last 24 hours. Of note she has had higher Accu-Cheks. When she was discharged home she was asked to half dose her basal rate on her insulin pump and her sugars have been somewhat higher than usual and that earlier this evening her sugar was a little over 500 and she gave herself a 16 unit bolus approximately an hour and a half ago with a blood sugar here on arrival of 355. After we receive the Accu-Chek patient gave herself an additional 10 units of insulin via pump. Para: 1 : 1 History Past Medical History Narrative Medical Type 1 diabetes since 15 years old Gestational hypertension Obstetric History Obstetric History section postop day 5 today Past Surgical History Narrative Surgical as above Cholecystectomy with postoperative complications necessitating 10-14 postop hospital stay Family History Family History: Negative Social History Alcohol Use: No Tobacco Use: No Substance Abuse: No Allergies-Medications (Allergen,Severity, Reaction): Coded Allergies: No Known Allergies (Verified Allergy, Unknown, 07/18/17) Home Meds Active Scripts Oxycodone-Acetaminophen (Percocet) 5-325 mg Tab, 1 TAB PO Q4H Y for PAIN, #15 TAB 0 Refills Prov:Bennie Ratliff MD 07/22/17 Ketorolac (Ketorolac) 10 Mg Tab, 10 MG PO TID for Pain Management, #30 TAB 1 Refill Prov:Bennie Ratliff MD 07/22/17 Labetalol (Labetalol) 100 Mg Tab, 100 MG PO Q12HR for bp for 30 Days, #60 TAB Prov:Cris Vail MD 07/22/17 Oxycodone Liq (Oxycodone Liq) 10 Mg/0.5 Ml Conc, 5 MG PO Q4H for Pain Management , #60 ML Prov:Bennie Ratliff MD 07/21/17 Reported Medications Mv & Min W/Fe Prot Ross ( + Complete Multi 18-0.8 & 290 mg) 18 Mg Iron-800 Mcg-290 Mg-225 Mg Vega 03/02/17 Insulin Lispro (Human) Inj (Humalog Inj) 1,000 Unit/10 Ml Vial, 1-9 UNITS SQ ACHS for Blood Sugar Management, #1 VIAL 0 Refills Max dose at bedtime:( )units; sugars< 70,(0)units; sugars 150-199,(1)unit; sugars 200-249,(3)units; sugars 250-299,(5)units; sugars 300-349,(7)units; sugars more than 349,(9)units. 03/02/17 Insulin Human Regular Inj (Novolin R Inj) 1,000 Unit/10 Ml Vial, 0 SQ DIRECTED for Blood Sugar Management, #10 ML 0 Refills Sliding Scale As Directed. 06/27/16 Discontinued Reported Medications Aspirin (Aspirin) 81 Mg Chew, 81 MG CHEW DAILY, TAB 0 Refills 07/18/17 Discontinued Scripts Ukmbvgeouc-Ystmnvmokmepx-Ghnswnwl (Fioricet) 50-300-40 Mg Cap, 1-2 CAP PO Q6H Y for HEADACHE, #14 CAP 0 Refills Prov:Paco Sparrow MD 04/11/17 Amoxicillin-Clavulanate (Augmentin) 875-125 Mg Tab, 1 TAB PO BID for Infection for 7 Days, #14 TAB 0 Refills Prov:Paco Sparrow MD 04/11/17 Review of Systems General / Constitutional: Other (Fatigue) Musculoskeletal: Edema Physical Exam Narrative GENERAL: Well-nourished, well-developed patient. SKIN: Warm and dry. HEAD: Normocephalic and atraumatic. EYES: No scleral icterus. No injection or drainage. ENT: No nasal drainage noted. Mucous membranes pink. Airway patent. NECK: Supple, trachea midline. No JVD. CARDIOVASCULAR: Regular rate and rhythm without murmurs, gallops, or rubs. RESPIRATORY: Breath sounds equal bilaterally. No accessory muscle use. ABDOMEN/GI: Abdomen soft, non-tender, bowel sounds present, no rebound, no guarding. incision is healing well with Steri-Strips. Fundus is firm and low approximately 14 week size GENITOURINARY: Minimal lochia EXTREMITIES: No cyanosis. 1+ edema. BACK: Nontender without obvious deformity. No CVA tenderness. NEUROLOGICAL: Awake and alert. Motor and sensory grossly within normal limits. Five out of 5 muscle strength in all muscle groups. Normal speech. Data Data Orders Orders Vital Signs (Adult) .ON ADMISSION (07/24/17 22:50) ^ Labor Status (07/24/17 22:50) Urinalysis - C+S If Indicated (07/24/17 22:50) ^ Non Stress Test (07/24/17 22:50) Diet Ob Consistent Carb (07/25/17 Breakfast) Cbc No Diff, Includes Plts (07/24/17 22:50) Comprehensive Metabolic Panel (07/24/17 22:50) Labs Laboratory Tests Test 07/24/17 23:00 07/24/17 23:09 Urine Color LIGHT-YELLOW Urine Turbidity CLEAR Urine pH 6.0 Urine Specific Cascade 1.025 Urine Protein NEG mg/dL Urine Glucose (UA) 1000 mg/dL Urine Ketones 80 mg/dL Urine Occult Blood MOD Urine Nitrite NEG Urine Bilirubin NEG Urine Urobilinogen LESS THAN 2.0 MG/DL Urine Leukocyte Esterase TRACE Urine RBC 6 /hpf Urine WBC 29 /hpf Urine Squamous Epithelial Cells 1 /hpf Urine Transitional Epithelial Cells <1 /hpf Urine Renal Epithelial Cells <1 /hpf Microscopic Urinalysis Comment CULTURE INDICATED White Blood Count 7.4 TH/MM3 Red Blood Count 3.46 MIL/MM3 Hemoglobin 10.5 GM/DL Hematocrit 30.1 % Mean Corpuscular Volume 87.0 FL Mean Corpuscular Hemoglobin 30.4 PG Mean Corpuscular Hemoglobin Concent 35.0 % Red Cell Distribution Width 13.5 % Platelet Count 260 TH/MM3 Mean Platelet Volume 9.2 FL Blood Urea Nitrogen 9 MG/DL Creatinine 0.76 MG/DL Random Glucose 290 MG/DL Total Protein 7.0 GM/DL Albumin 2.9 GM/DL Calcium Level 8.7 MG/DL Alkaline Phosphatase 121 U/L Aspartate Amino Transf (AST/SGOT) 16 U/L Alanine Aminotransferase (ALT/SGPT) 17 U/L Total Bilirubin 0.5 MG/DL Sodium Level 139 MEQ/L Potassium Level 3.6 MEQ/L Chloride Level 105 MEQ/L Carbon Dioxide Level 24.0 MEQ/L Anion Gap 10 MEQ/L Estimat Glomerular Filtration Rate 97 ML/MIN [facility] Medical Record Reviewed: Yes Plan 22 yo P1 day 5 1. Gestational hypertension on labetalol 100mg BID - BP's have increased and patient will need admission for observation and treatment. [facility] labs are normal at this time. 2. Hyperglycemia Type 1 diabetes - no signs of wound infection and accucheck is improved to 190 with additional SQ insulin. Patient has been increased to 0.8 basal rate on her pump and additional insulin via sliding scale will be administered as needed. Continue IV hydration 3. Patient c/o cough - No physical signs of pulmonary edema on exam. Order CXR. O2 sat is 99% Diagnosis Diagnosis: Primary Impression: hypertension Additional Impression: Type 1 diabetes Maria Ines Nelson MD July 24, 2017 22:58
[2017-07-24 23:43] LABS: HEMATOCRIT 30.1 % (35.0-46.0); HEMOGLOBIN 10.5 GM/DL (11.6-15.3); MEAN CORPUSCULAR HEMOGLOBIN 30.4 PG (27.0-34.0); MEAN PLATELET VOLUME 9.2 FL (7.0-11.0); PLATELET COUNT 260 TH/MM3 (150-450); RED BLOOD COUNT 3.46 MIL/MM3 (4.00-5.30); RED CELL DISTRIBUTION WIDTH 13.5 % (11.6-17.2); WHITE BLOOD COUNT 7.4 TH/MM3 (4.0-11.0)
[2017-07-24 23:46] LABS: BILIRUBIN, URINE NEG (NEG); BLOOD, URINE MOD (NEG); GLUCOSE,URINE 1000 mg/dL (NEG); KETONE, URINE 80 mg/dL (NEG); NITRITE,URINE NEG (NEG); RENAL EPITHELIAL CELLS <1 /hpf; SQUAMOUS EPITHELIAL CELL URINE 1 /hpf (0-5); TRANSITIONAL EPI CELLS, URINE <1 /hpf; URINE COLOR LIGHT-YELLOW (YELLW/STRAW); URINE LEUKOCYTE ESTERASE TRACE (NEG)
[2017-07-25] MEDS ORDERED: LABETALOL HCL 100 MG/20 ML VIAL ONE (00:02)
[2017-07-25 00:04] LABS: ALBUMIN 2.9 GM/DL (3.4-5.0); ALT (GPT) 17 U/L (9-42); AST (GOT) 16 U/L (16-38); BLOOD UREA NITROGEN 9 MG/DL (7-18); CALCIUM 8.7 MG/DL (8.5-10.1); CHLORIDE 105 MEQ/L (98-107); CREATININE 0.76 MG/DL (0.50-1.00); GLOMERULAR FILTRATION RATE 97 ML/MIN (>89); GLUCOSE,RANDOM 290 MG/DL (74-106); SODIUM (NA) 139 MEQ/L (136-145)
[2017-07-25] MEDS: LACTATED RINGER'S 1000 ML INJ 1,000 ML IV SCH ×2 (00:05→07:40)
[2017-07-25 00:06] LABS: ALKALINE PHOSPHATASE 121 U/L (45-117); TOTAL BILIRUBIN ADULT 0.5 MG/DL (0.2-1.0)
[2017-07-25] MEDS ORDERED: LABETALOL HCL 100 MG/20 ML VIAL IV PUSH ONE (00:15)
[2017-07-25] MEDS ORDERED: LABETALOL HCL 100 MG/20 ML VIAL IV PUSH PRN ×3 (00:30→00:45)
[2017-07-25] MEDS ORDERED: DEXTROSE 50% IN WATER 50 ML VIAL(D50) IV PUSH PRN (00:30)
[2017-07-25] MEDS ORDERED: ACETAMINOPHEN/HYDROcodone 325 MG/5 MG TAB PO PRN ×3 (00:30→10:15)
[2017-07-25] MEDS ORDERED: SODIUM CHLORIDE 0.9% FLUSH 10 ML FLUSH IV FLUSH PRN (00:30)
[2017-07-25] MEDS ORDERED: GLUCAGON 1 MG/ML VIAL OTHER PRN (00:30)
--- NOTE | 2017-07-25 01:22 | RADRPT ---
EXAM DATE/TIME: 07/25/2017 00:44 [place] COMPARISON: CHEST SINGLE AP, July 06, 2016, 12:20. INDICATIONS : Tightness in chest. MEDICAL HISTORY : None. SURGICAL HISTORY : None. ENCOUNTER: Initial ACUITY: 1 day PAIN SCORE: 3/10 LOCATION: Bilateral chest FINDINGS: A single view of the chest demonstrates the lungs to be symmetrically aerated without evidence of mas s, infiltrate or effusion. The cardiomediastinal contours are unremarkable. Osseous structures are intact. CONCLUSION: No acute disease. Martínez Hampton MD on July 25, 2017 at 1:20 Board Certified Radiologist. This report was verified electronically.
[2017-07-25] MEDS ORDERED: INSULIN NovoLIN REGULAR SUPPLEMENTAL SCALE SQ SCH (08:00)
--- NOTE | 2017-07-25 08:23 | HHI.OB ---
Subjective Post Operative Day: 6 Remarks POD#6; Stable after increase in labetalol and adjustment in insulin pump, FBS 130 Objective Result Diagram: 07/24/17230807/24/172308 Objective Remarks GENERAL: Well-nourished, well-developed patient. CARDIOVASCULAR: Regular rate and rhythm without murmurs, gallops, or rubs. RESPIRATORY: Breath sounds equal bilaterally. No accessory muscle use. ABDOMEN/GI: Abdomen soft, non-tender, bowel sounds present. Incision: Clean, dry and intact. Fundus: Firm, non-tender at umbilicus. GENITOURINARY: Light to moderate bleeding. EXTREMITIES: No cyanosis or edema, non-tender, without signs of DVT. Medications and IVs Current Medications Medications (Trade) Dose Ordered Sig/Sunil Route Start Time Stop Time Status Last Admin Lactated Ringer's 1,000 ml @ 150 mls/hr Q6H40M IV 07/25/17 01:00 07/25/17 00:05 (NS Flush) 2 ml UNSCH PRN IV FLUSH 07/25/17 00:30 (NS Flush) 2 ml BID IV FLUSH 07/25/17 09:00 (Trandate Inj) 20 mg NOW PRN IV PUSH 07/25/17 00:30 07/27/17 00:29 (Trandate Inj) 80 mg NOW PRN IV PUSH 07/25/17 00:45 07/27/17 00:44 (Loving 5-325 Mg) 1 tab Q6H PRN PO 07/25/17 00:30 (D50w (Vial) Inj) 50 ml UNSCH PRN IV PUSH 07/25/17 00:30 (Glucagon Inj) 1 mg UNSCH PRN OTHER 07/25/17 00:30 (NovoLIN R SUPPLEMENTAL SCALE) 1 ACHS SLIDING SCALE SQ 07/25/17 08:00 (Trandate) 400 mg Q12HR PO 07/25/17 09:00 Assessment/Plan Assessment and Plan POD#^; Gest. Hypertension, improved, will discharge home on labetalol 400 mg daily, will monitor Bs and adjust pump as needed. Discharge Planning Today Attending Attestation seen by Nick Adams MD July 25, 2017 08:23
[2017-07-25] MEDS ORDERED: LABE200T2 PO (08:24)
--- NOTE | 2017-07-25 08:27 | HHI.DS ---
Admission Date July 25, 2017 at 00:33 Admitting Diagnosis Diagnosis: Brief History Patient is a 22-year-old who is 5 days postop from a section performed at 37 weeks gestation. Patient is a type I diabetic who was was complicated by gestational hypertension and she was admitted at 37 weeks with induction of labor and eventual section due to cephalopelvic disproportion and nonreassuring heart rate tracing. Patient continued to have hypertension and was discharged on July 22 with labetalol 100 mg twice daily. She and her mother bought a blood pressure cuff and blood pressures were 140-150/90 at home until earlier this evening when her blood pressure was 200/106. Patient states that she has had daily headaches for a couple hours a day with she has been treating with Tylenol and some abdominal pain that she is having difficulty delineating the source whether it be epigastric in nature or incision pain. Patient denies any visual issues. Some pedal edema which is increased slightly within the last 24 hours. Of note she has had higher Accu-Cheks. When she was discharged home she was asked to half dose her basal rate on her insulin pump and her sugars have been somewhat higher than usual and that earlier this evening her sugar was a little over 500 and she gave herself a 16 unit bolus approximately an hour and a half ago with a blood sugar here on arrival of 355. After we receive the Accu-Chek patient gave herself an additional 10 units of insulin via pump. Pt Condition on Discharge: Stable Discharge Disposition: Discharge Home Discharge Instructions Diet Instructions: Diabetic Diet Activities You Can Perform: Shower Only-No Bath, Pelvic Rest Activities to Avoid: Prolonged Standing, Strenuous Activity, Driving, Sexual Activity Nick Marr MD July 25, 2017 08:27
[2017-07-25] MEDS: LABETALOL HCL 200 MG TAB PO SCH ×2 (08:32→21:02)
[2017-07-25] MEDS: SODIUM CHLORIDE 0.9% FLUSH 10 ML FLUSH IV FLUSH SCH ×2 (08:33→21:02)
[2017-07-25] MEDS ORDERED: labetalol PO (08:37)
[2017-07-25] MEDS ORDERED: LABETALOL HCL 200 MG TAB PO SCH (09:00)
[2017-07-25 09:33] VITALS: RESP 16
[2017-07-25] MEDS ORDERED: amLODIPine BESYLATE 5 MG TAB PO ONE (12:00)
[2017-07-26] MEDS ORDERED: AMLO5 PO (08:37)
--- NOTE | 2017-07-26 08:42 | PD.OB.ANTE ---
Subjective Interval History Headache resolved. BS under 200's. pain well controlled, min vb. Objective Vital Signs Vital Signs Date Time Temp Pulse Resp B/P (MAP) Pulse Ox O2 Delivery O2 Flow Rate FiO2 07/25/17 09:33 16 Lab & Micro Results Date/Time Source Procedure Growth Status 07/24/17 23:00 Urine Clean Catch Urine Culture - Preliminary IMMATURE GROWTH - REINCUBATE Resulted Physical Exam GENERAL: Well-nourished, well-developed patient. CARDIOVASCULAR: Regular rate and rhythm without murmurs, gallops, or rubs. RESPIRATORY: Breath sounds equal bilaterally. No accessory muscle use. ABDOMEN/GI: Abdomen soft, non-tender.incision c/d/i EXTREMITIES: No cyanosis or edema, non-tender, without signs of DVT. Assessment and Plan Problem List: (1) Type 1 diabetes ICD Codes: E10.9 - Type 1 diabetes mellitus without complications Status: Acute (2) hypertension ICD Codes: O16.5 - Unspecified maternal hypertension, complicating the puerperium Status: Acute Assessment and Plan Postop Gest. Hypertension, improved, will discharge home on labetalol 400 mg daily, and norvasc at noon. Will check bp prior to noon medicationa and will keep bp log. has appt on tuesday. will monitor Bs and adjust pump as needed. Has endocrine appt next week Bonnie Wheeler MD July 26, 2017 08:42
[2017-07-26] MEDS: LABETALOL HCL 200 MG TAB PO SCH (08:53)
[2017-07-26] MEDS ORDERED: amLODIPine BESYLATE 5 MG TAB PO SCH (09:00)
== END 2017-07-26 10:35 | disposition home or self-care (01) | DRG 776 ==
LOC: HOBED 22:05 → H2EA 07-25 00:33
PROVIDERS: ADMIT Obstetrics & Gynecology; ATTEND Obstetrics & Gynecology
DX: O13.5 Gestational [pregnancy-induced] hypertension without significant proteinuria, complicating the puerperium (principal); O24.03 Pre-existing type 1 diabetes mellitus, in the puerperium; E10.65 Type 1 diabetes mellitus with hyperglycemia; Z96.41 Presence of insulin pump (external) (internal)
CPT/HCPCS: 71045; 80053; 81001; 82948; 85027; 87086; 96361; 96374; J7120